=== PATIENT | female | born 1935 | race Asian ===

== ENCOUNTER 2016-07-26 09:50 | Inpatient (IN) | payer OTHER, MEDICAID ==
[~2016-07-26] VITALS: Ht 152.4 cm; Wt 61.0 kg
--- NOTE | 2016-07-26 10:02 | ERA ---
ER Documentation Chief Complaint Date/Time DATE: 07/26/16 TIME: 09:58 Chief Complaint ALOC DUE TO LO BS AT HOME. NO TRAUMA. BS ON ARRIVAL IS 142. A&OX3 ARRIVED HPI 81-year-old female with a history of diabetes mellitus type 2, hypertension, dyslipidemia, irregular heartbeat and vertigo presents to the ED via rescue ambulance for evaluation of altered mental status and hypoglycemia. Patient is Bangladeshi speaking and history is provided through her daughter who is at the bedside. Yesterday patient's blood sugar was consistently below 50 mg/dL throughout the day that she had no change in mental status. Daughter supplemented her diet with increased sugars and carbohydrates. This morning prior to arrival patient became confused and was not responding normally. 911 was activated. Her blood sugar was 21 mg/dL and was given D10 250 cc was given and now she is back to baseline. Repeat Accu-Chek was 142 mg/dL. Patient is otherwise asymptomatic. No headache, dizziness, visual changes, focal weakness or numbness. Denies chest pain or palpitations. No shortness of breath or cough. No abdominal pain, nausea, vomiting, diarrhea or constipation. No dysuria, polyuria or hematuria. No URI symptoms, body aches, odynophagia or rhinorrhea. No fevers, chills, anorexia or weight loss. ROS All systems reviewed and are negative except as per history of present illness. Medications Home Meds Reported Medications Alendronate Sodium* (Binosto*) 70 Mg Tablet.eff, 70 MG PO Q7D, TAB 07/26/16 Meclizine Hcl* (Meclizine Hcl*) 25 Mg Tablet, 25 MG PO Q8H Y for DIZZINESS, TAB 07/26/16 Propranolol Hcl* (Propranolol Hcl*) 10 Mg Tablet, 10 MG PO TID, TAB 07/26/16 Ramipril (Ramipril) 5 Mg Capsule, 5 MG PO DAILY, CAP 07/26/16 Atorvastatin* (Atorvastatin*) 40 Mg Tablet, 40 MG PO QHS, #30 TAB 07/26/16 Nateglinide* (Nateglinide*) 120 Mg Tablet, 120 MG PO BID, TAB 07/26/16 Metformin Hcl* (Metformin Hcl*) 500 Mg Tablet, 500 MG PO WITH BREAKFAST DINNE, # 30 TAB 07/26/16 Allergies Allergies: Coded Allergies: No Known Allergy (Unverified , 4/22/17) PMhx/Soc Reviewed in chart. As per HPI. Lives with family. History of Surgery: No Hx Neurological Disorder: Yes (Vertigo) Hx Respiratory Disorders: No Hx Cardiac Disorders: Yes (Hypertension, cardiac dysrhythmia) Hx Psychiatric Problems: No Hx Miscellaneous Medical Probl: Yes (Diabetes mellitus type 2) Hx Alcohol Use: No Hx Substance Use: No Hx Tobacco Use: No FmHx No cancer, stroke or diabetes Physical Exam Vitals Vital Signs Date Time Temp Pulse Resp B/P Pulse Ox O2 Delivery O2 Flow Rate FiO2 07/26/16 10:04 52 16 145/72 98 Room Air 07/26/16 09:53 98.2 52 20 134/67 98 Physical Exam Const: Alert, elderly in no acute distress. Head: Atraumatic Eyes: Pupils equal reactive to light, extraocular movements are intact. Normal Conjunctiva ENT: Normal External Ears, Nose and Mouth. Mucous membranes are moist Neck: Full range of motion. Nontender. No JVD.. Resp: Clear to auscultation bilaterally. Breath sounds are equal bilaterally without rales rhonchi or wheezes Cardio: Regular rate and rhythm, no murmurs Abd: Soft, non tender, non distended. Normal bowel sounds. No rebound or guarding. No masses or abnormal pulsations. Skin: No petechiae or rashes Back: No midline or flank tenderness Ext: No cyanosis, or edema Neur: Awake and alert. Cranial nerves II through XII are grossly intact. Motor and sensory equal bilaterally. No focal deficit observed. Psych: Normal Mood and Affect Result Diagram: 07/26/16 1030 07/26/16 1030 Results 24 hrs Laboratory Tests Test 07/26/16 09:56 07/26/16 10:30 07/26/16 11:06 07/26/16 11:31 Bedside Glucose 151mg/dL 72mg/dL 64mg/dL White Blood Count 14.210^3/ul Red Blood Count 3.8010^6/ul Hemoglobin 12.1g/dl Hematocrit 36.0% Mean Corpuscular Volume 94.7fl Mean Corpuscular Hemoglobin 31.8pg Mean Corpuscular Hemoglobin Concent 33.6g/dl Red Cell Distribution Width 13.2% Platelet Count 54685^3/UL Mean Platelet Volume 11.4fl Neutrophils % 75.2% Lymphocytes % 14.3% Monocytes % 9.1% Eosinophils % 0.0% Basophils % 0.3% Nucleated Red Blood Cells % 0.0/100WBC Neutrophils # 10.710^3/ul Lymphocytes # 2.010^3/ul Monocytes # 1.310^3/ul Eosinophils # 0.010^3/ul Basophils # 0.010^3/ul Nucleated Red Blood Cells # 0.010^3/ul Sodium Level 131mmol/L Potassium Level 4.4mmol/L Chloride Level 97mmol/L Carbon Dioxide Level 23mmol/L Anion Gap 15 Blood Urea Nitrogen 27mg/dl Creatinine 0.74mg/dl Glucose Level 88mg/dl Calcium Level 8.4mg/dl Total Bilirubin 1.0mg/dl Direct Bilirubin 0.00mg/dl Indirect Bilirubin 1.0mg/dl Aspartate Amino Transf (AST/SGOT) 55IU/L Alanine Aminotransferase (ALT/SGPT) 112IU/L Alkaline Phosphatase 58IU/L Total Protein 5.2g/dl Albumin 2.7g/dl Globulin 2.50g/dl Albumin/Globulin Ratio 1.08 Current Medications Medications (Trade) Dose Ordered Sig/Marissa Route PRN Reason Start Time Stop Time Status Last Admin Dose Admin Dextrose (D10w) 250 ml @ 75 mls/hr Q3H20M IV 07/26/16 12:00 07/26/16 12:09 Ondansetron HCl (Zofran Inj) 4 mg ER BRIDGE PRN IV NAUSEA AND/OR VOMITING 07/26/16 12:30 07/27/16 12:29 Acetaminophen (Tylenol Tab) 650 mg ER BRIDGE PRN PO MILD PAIN/FEVER 07/26/16 12:30 07/27/16 12:29 EKG: TIME: 10:22. Sinus bradycardia. Ventricular rate 48. Normal IL and QRS. T-wave inversions in leads V1 through V3. No acute ST segment elevation. No ectopy. EP Interpretation: Abnormal EKG. IMAGING: PROCEDURE: Chest x-ray CLINICAL INDICATION: Hypoglycemia TECHNIQUE: Chest single view COMPARISON: None FINDINGS: There is mild cardiomegaly and an sclerotic aortic calcification. There is mild prominence of the pulmonary vessels. No confluent pneumonia seen. Costophrenic angles sharp. Bony thorax is unremarkable. IMPRESSION: 1. Mild cardiomegaly and atherosclerotic aortic calcification. 2. Borderline prominence of the pulmonary vessels RPTAT: HH .Everett Boggs MD, MD Date Time Electronically viewed and signed by .Everett Boggs MD, on 07/26/2016 11:12 .W/ Procedures/MDM DOCUMENTS REVIEWED: ED nurse, EMS, no prior records available MEDICAL DECISION MAKIN-year-old female with a history of diabetes mellitus type 2, hypertension, dyslipidemia, irregular heartbeat and vertigo presents to the ED via rescue ambulance for evaluation of altered mental status and hypoglycemia. Patient presents with hyperglycemia secondary to oral hypoglycemics. Despite intravenous glucose supplementation and oral replacement blood sugar continues to drop from 151 mg/dL arrival to 72 mg/dL at 11:06 and 64 mg/dL at 11:30 requiring continuous D10 infusion. No focal neurologic deficit, headache or indication for neuroimaging. Abdominal exam is benign without tenderness, rebound, guarding or signs of an occult intra- abdominal process. Mild hyponatremia and prerenal azotemia. Bradycardia likely secondary to beta blockade for blood pressure stable. T-wave inversions in the anterior leads but no chest pain or other signs of acute coronary syndrome. No old EKG available for comparison. Patient to be admitted to telemetry for further evaluation and management. Counseled patient and family regarding diagnosis, diagnostic results and plan for admission. CALLS/CONSULTS: Time 11:45, Dr. Xiong PATIENT CARE TRANSITIONED: Time: 12:15, Dr. Xiong. Departure Diagnosis: Primary Impression: Altered level of consciousness Additional Impressions: Altered mental status Qualified Code: R41.82 - Altered mental status, unspecified altered mental status type Essential hypertension Hyperlipidemia Qualified Code: E78.5 - Hyperlipidemia, unspecified hyperlipidemia type Condition: Serious HANNAH YORK MD Jul 26, 2016 10:02
[2016-07-26 10:51] LABS: ADD SCAN DIFF NO
[2016-07-26 10:56] LABS: BASOPHILS % 0.3 % (0.0-2.0); HEMOGLOBIN 12.1 g/dl (12.0-16.0); LYMPHOCYTES % 14.3 % (15.0-51.0); MEAN CORPUSCULAR HEMOGLOBIN 31.8 pg (29.0-33.0); MEAN CORPUSCULAR HGB CONC 33.6 g/dl (32.0-37.0); MEAN CORPUSCULAR VOLUME 94.7 fl (82.0-101.0); MEAN PLATELET VOLUME 11.4 fl (7.4-10.4); MONOCYTE # 1.3 10^3/ul (0.3-0.9); MONOCYTES % 9.1 % (0.0-11.0); NEUTROPHIL # 10.7 10^3/ul (1.6-7.5); NEUTROPHILS % 75.2 % (39.0-77.0); PLATELET COUNT 184 10^3/UL (140-415); RED CELL DISTRIBUTION WIDTH 13.2 % (11.5-14.5); WHITE BLOOD COUNT 14.2 10^3/ul (4.8-10.8)
[2016-07-26 11:05] LABS: ALBUMIN 2.7 g/dl (3.3-4.9)
[2016-07-26 11:06] LABS: POTASSIUM 4.4 mmol/L (3.5-5.1)
[2016-07-26 11:08] LABS: ALBUMIN/GLOBULIN RATIO 1.08; CALCIUM 8.4 mg/dl (8.4-10.2); CREATININE 0.74 mg/dl (0.44-1.00); TOTAL PROTEIN 5.2 g/dl (6.1-8.1)
--- NOTE | 2016-07-26 11:12 | RADRPT ---
PROCEDURE: Chest x-ray CLINICAL INDICATION: Hypoglycemia TECHNIQUE: Chest single view COMPARISON: None FINDINGS: There is mild cardiomegaly and an sclerotic aortic calcification. There is mild prominence of the p ulmonary vessels. No confluent pneumonia seen. Costophrenic angles sharp. Bony thorax is unremark able. IMPRESSION: 1. Mild cardiomegaly and atherosclerotic aortic calcification. 2. Borderline prominence of the pulmonary vessels RPTAT: HH .Everett Boggs MD, MD Date Time Electronically viewed and signed by .Everett Boggs MD, MD on 07/26/2016 11:12 .W/
[2016-07-26] MEDS: DEXTROSE 10% 250 ML IV SCH ×2 (12:09→15:14)
[2016-07-26 12:25] LABS: ADD UMIC NO; URINE BILIRUBIN (Dip) NEGATIVE (NEGATIVE); URINE BLOOD (Dip) NEGATIVE (NEGATIVE); URINE COLOR LT. YELLOW (YELLOW); URINE GLUCOSE (Dip) NEGATIVE (NEGATIVE); URINE KETONES (Dip) NEGATIVE (NEGATIVE); URINE LEUKOCYTE ESTERASE (Dip) NEGATIVE (NEGATIVE); URINE NITRITE (Dip) NEGATIVE (NEGATIVE); URINE TOTAL PROTEIN (Dip) NEGATIVE (NEGATIVE); URINE UROBILINOGEN (Dip) 0.2 E.U./dL (0.1-1.0)
[2016-07-26] MEDS ORDERED: ACETAMINOPHEN 325 MG TAB PO PRN (12:30)
[2016-07-26] MEDS ORDERED: ONDANSETRON 4 MG INJ IV PRN ×2 (12:30→15:30)
[2016-07-26] MEDS ORDERED: ATOR40TA68 PO (12:34)
[2016-07-26] MEDS ORDERED: NATE120T PO (12:34)
[2016-07-26] MEDS ORDERED: METF500T4 PO (12:34)
[2016-07-26] MEDS ORDERED: RAMI5CAP46 PO (12:34)
[2016-07-26] MEDS ORDERED: MECL-77 PO (12:35)
[2016-07-26] MEDS ORDERED: PROP10TA6 PO (12:35)
[2016-07-26] MEDS ORDERED: ALEN70TA46 PO (12:36)
[2016-07-26] MEDS: DEXTROSE 5%-0.45% NACL 1,000 ML IV SCH ×2 (15:27→23:15)
[2016-07-26] MEDS ORDERED: GLUCOSE GEL 15 GRAM TUBE PO PRN ×2 (16:30)
[2016-07-26] MEDS ORDERED: GLUCAGON 1 MG INJ IM PRN (16:30)
[2016-07-26] MEDS ORDERED: DEXTROSE 50% 50 ML SYRINGE IV PRN ×2 (16:30)
[2016-07-26] MEDS ORDERED: GLUCOSE GEL 15 GRAM TUBE BUCCAL PRN (16:30)
--- NOTE | 2016-07-26 16:34 | RADRPT ---
PROCEDURE: Right upper quadrant abdominal ultrasound. CLINICAL INDICATION: Abdominal pain TECHNIQUE: Pozo scale and color doppler ultrasound images of the right upper quadrant. COMPARISON: None FINDINGS: Pancreas: Visualized portions appear of normal echogenicity, no focal lesions. Liver: Morphology: Normal in size and contour. Echogenicity: Normal. Focal lesions: None. Main portal vein: Patent with hepatopetal flow. Biliary System: Normal appearing gallbladder wall. No gallstones seen. No intrahepatic biliary dilatation. Common bile duct measures 3.3 mm in maximal dimension. Kidneys: Right 8.4 cm in length. Right renal cortical thickness is preserved. Normal echogenicity. No hydronephrosis. No renal calculi. No focal lesions. Small amount of free fluid seen in the upper abdomen. IMPRESSION: Normal gallbladder without gallstones. Small amount of free fluid seen in the upper abdomen of uncertain etiology. CT of the abdomen and p gene may be useful for further evaluation. RPTAT: AADD .Tommy Vaughn MD, MD Date Time Electronically viewed and signed by .Tommy Vauhgn MD, on 07/26/2016 16:33 .B/
[2016-07-26 17:20] VITALS: PULSE 59
[2016-07-26 18:23] VITALS: BP 136/72; RESP 19
[2016-07-26 20:00] VITALS: BP 137/65; RESP 18
[2016-07-26 20:17] VITALS: PULSE 50
[2016-07-26] MEDS ORDERED: ALENDRONATE SODIUM 70 MG PO SCH (20:30)
[2016-07-26] MEDS: DOCUSATE SODIUM 100 MG CAP PO SCH (20:43)
[2016-07-26] MEDS: ATORVASTATIN 40 MG TAB PO SCH (20:43)
[2016-07-26] MEDS: FAMOTIDINE 20 MG INJ IV SCH (20:43)
[2016-07-26] MEDS: PROPRANOLOL 10 MG TAB PO SCH (21:00)
[2016-07-26] MEDS: ACCU-CHEK XX SCH (21:55)
[2016-07-26 23:53] VITALS: BP 154/75; RESP 18
[2016-07-27] VITALS (13 sets, daily range): BP systolic 104–172; BP diastolic 54–89; PULSE 50–66; RESP 16–18
[2016-07-27] MEDS: ACCU-CHEK XX SCH ×6 (01:27→21:05)
[2016-07-27] MEDS: DEXTROSE 5%-0.45% NACL 1,000 ML IV SCH ×2 (06:56→14:08)
--- NOTE | 2016-07-27 06:58 | HP ---
DATE OF ADMISSION: 07/26/2016 PRESENTING COMPLAINT: Low blood glucose. HISTORY OF PRESENTING COMPLAINT: This is a very pleasant 81-year-old [place] female who was brou ght in by her daughter because of concerns for recurrent hypoglycemia. The patient is on 2 blood pr essure medicines currently as well as metformin and has been on these medications for years without issues; however, over the last day, because of lethargy and weakness, the patient's daughter has bee n checking her mother's blood sugar, and she noted that the sugars were ranging in the 30s and 40s a nd requiring glucose therapy repeatedly. She called EMS today when it happened again. When they go t there, the patient's sugar was said to be in the 40s. She was treated with glucose. It improved, but by the time they got back to the emergency room again, it had dropped again into the 70s. Init ially, the patient had denied any form of pain. Upon my review, the patient was complaining of some epigastric pain. She had 1 episode of diarrhea this morning and was just complaining of abdominal soreness and discomfort. There was no fever though. There was no nausea. There was no blood in he r stool. There were no black stools. There was no dysuria or hematuria. There was no chest pain, no passing out episodes. PAST MEDICAL HISTORY: 1. High blood pressure. 2. Diabetes. 3. Dyslipidemia. 4. Chronic dizziness. 5. Osteoporosis. PAST SURGICAL HISTORY: Denies. ALLERGIES: NO KNOWN DRUG ALLERGIES. SOCIAL HISTORY: Never smoked, drank alcohol, or used illicit drugs. FAMILY HISTORY: Noncontributory. There is also no history of gallstones. REVIEW OF SYSTEMS: A 12-point review of system was done. Pertinent findings are as noted in the HP I. PHYSICAL EXAMINATION: VITAL SIGNS: The patient was still somewhat bradycardic on my evaluation, the 50s, temperature 98.2 , respiratory rate 16, blood pressure 136/70, saturations 100% on room air. GENERAL: Elderly pleasant female, alert and oriented, in no distress. HEENT: Head is normocephalic. Pupils are equal and reactive. Mucous membranes are moist. Posteri or pharynx clear of erythema and exudate. NECK: Supple without adenopathy. CHEST: Clear to auscultation with good air entry on both sides. CARDIOVASCULAR: S1 and S2, no added sounds or murmurs. ABDOMEN: Epigastric fullness and tenderness noted, but there was no rebound, no guarding. Right up per quadrant was not overtly tender. The rest of the abdomen was overall soft without tenderness an d with normoactive bowel sounds. EXTREMITIES: No lower extremity edema. NEUROLOGIC: She had no focal deficits. The patient is said to be ambulatory with walker sometimes at baseline. SKIN: Devoid of rash or jaundice. PSYCHIATRIC: She was quite cooperative with exam. LABORATORY VALUES: She had a leukocytosis of 14,000 and mildly low hematocrit of 36, platelet count was normal, and there was no bandemia or neutrophilia. On her chemistry though, concerning was her LFTs that were elevated, AST at 55, ALT at 112. Her bilirubin levels were normal. Troponin was ne gative. Protein levels were slightly low. Serum sodium was on the low side at 131. BUN was slight ly elevated at 27, but more concerning was the lipase level of 1479. Urinalysis was not suggestive of a urinary tract infection. IMAGING: Chest x-ray showed mild cardiomegaly and atherosclerosis, and I ordered a gallbladder ultr asound that came back negative for gallstones and a small amount of free fluid seen in the upper abd omen of uncertain etiology. ASSESSMENT: This is an 81-year-old female who had presented with recurrent hypoglycemia, now manage d for the following 1. Acute recurrent hypoglycemia likely secondary to #2. 2. Acute pancreatitis, cause unclear. 3. Elevated transaminases which was thought to be secondary to probable gallstone pancreatitis but no presence of gallstones on ultrasound. 4. High blood pressure with good home control. 5. Diabetes mellitus with very good home control, type 2. 6. Mild hypernatremia. 7. Hyperproteinemia. PLAN: To admit the patient for further workup. She will be kept n.p.o. as per protocol, IV fluids, pain control. I am going to get a CT of the abdomen and pelvis to adequately define her abdominal organs and essentially see what we find. ____ may be secondary to hypertriglyceridemia or secondary cause or even medication related. I will review her medications with pharmacy and see if this is a probability. In the interim, though, we will control her pain with pain medication and give antiem etics and antibiotics as indicated. Further intervention will depend on her clinical course. For p rophylaxis, she will be on SCDs as well as PPI. For further information and clarification, please r eview the patient's chart and my orders. This plan of care has been discussed with the patient and her daughter. Questions have been answere d. Dictated By: GISELE ARREDONDO MD BA/NTS Conf#: [id number] DID#: [id number]
[2016-07-27] MEDS: DOCUSATE SODIUM 100 MG CAP PO SCH ×2 (08:12→20:41)
[2016-07-27] MEDS: BENAZEPRIL 20 MG TAB PO SCH (08:12)
[2016-07-27] MEDS: FAMOTIDINE 20 MG INJ IV SCH ×2 (08:12→21:04)
[2016-07-27] MEDS: PROPRANOLOL 10 MG TAB PO SCH ×3 (08:12→20:44)
[2016-07-27] MEDS ORDERED: NON-FORMULARY/PATIENT OWN MED (Ramipril 5 MG) PO SCH (09:00)
[2016-07-27] MEDS ORDERED: ALENDRONATE SODIUM 70 MG XX SCH (09:30)
--- NOTE | 2016-07-27 10:21 | RADRPT ---
PROCEDURE: CT abdomen and pelvis without contrast. CLINICAL INDICATION: Abdominal pain. Pancreatitis. TECHNIQUE: CT scan of the abdomen and pelvis without contrast was performed and is reconstructed a t 2.5 mm contiguous axial intervals from the dome of the diaphragm to the inferior pubic rami.. The patient was scanned without intravenous contrast. Sagittal and coronal reformatted images were obt ained from the axial source images. The calculated radiation dose measures 602 mGy centimeters. The CTDI measures 11 mGy. COMPARISON: None. FINDINGS: Lung bases are clear of any infiltrate or mass. There is a 6 mm ill-defined bilobed noncalcified no dular density on the posterior aspect of the lateral segment of the right middle lobe. There is a 4 mm indeterminate nodule in the medial basal segment of the left lower lobe. No effusion is present . The liver is of normal size, contour and attenuation with no solid mass or ductal dilatation. Sub ce ntimeter cysts are present in both lobes. No gallstones or common bile duct stones are visualized . No splenic or adrenal abnormalities present. no pancreatic mass or ductal dilatation is seen. T here is questionable minimal infiltration of the fat surrounding the head and neck of the pancreas. No discrete fluid collection is visualized. Large varices are seen extending from the splenic hilu m into the left renal vein. No other varices are identified. Kidneys are of normal size. No hydronephrosis, calculus or solid masses seen. 2 cm cortical cyst i s seen in the upper pole of the left kidney. Ureters are of normal course and caliber with no stone . No bladder mass or stone is present. Atrophic postmenopausal uterus is normal. No adnexal mass i s seen. There is no aneurysm. No adenopathy is present. No bowel mass or obstruction is present. The appendix is not confidently visualized, however, no inflamed appendix is noted.. No pneumoperitoneum is visualized. There is trace pelvic ascites. 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 IMPRESSION: No evidence of urolithiasis, obstructive uropathy, diverticulitis or appendicitis. Question mild infiltration peripancreatic fat without discrete pseudocyst. Findings may represent e vidence of pancreatitis. No gallstones or common bile duct stones seen. Hepatic cysts. 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 Rule out splenic vein occlusion. No other varices seen. Vascular calcifications. Scattered small benign appearing nodules in the lung bases. These most likely represent sequela of old inflammatory process. Follow-up CT could be performed in 4 months to insure stability. 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 Left renal cyst. .Dwight Garrett MD, Date Time Electronically viewed and signed by .Dwight Garrett MD, on 07/27/2016 10:20 .A/
[2016-07-27 11:29] LABS: ADD SCAN DIFF NO
[2016-07-27 11:31] LABS: ABNORMAL IP MESSAGE 1; BASOPHILS % 0.3 % (0.0-2.0); EOSINOPHILS # 0.2 10^3/ul (0.0-0.5); EOSINOPHILS % 1.4 % (0.0-7.0); HEMATOCRIT 37.3 % (37.0-47.0); HEMOGLOBIN 12.6 g/dl (12.0-16.0); LYMPHOCYTES # 3.2 10^3/ul (0.8-2.9); LYMPHOCYTES % 23.2 % (15.0-51.0); MEAN CORPUSCULAR HEMOGLOBIN 31.7 pg (29.0-33.0); MEAN CORPUSCULAR HGB CONC 33.8 g/dl (32.0-37.0); MEAN CORPUSCULAR VOLUME 93.7 fl (82.0-101.0); MEAN PLATELET VOLUME 11.8 fl (7.4-10.4); MONOCYTE # 2.2 10^3/ul (0.3-0.9); MONOCYTES % 16.1 % (0.0-11.0); NEUTROPHILS % 58.3 % (39.0-77.0); PLATELET COUNT 155 10^3/UL (140-415); RED BLOOD COUNT 3.98 10^6/ul (4.20-5.40); RED CELL DISTRIBUTION WIDTH 13.5 % (11.5-14.5); WHITE BLOOD COUNT 13.6 10^3/ul (4.8-10.8)
[2016-07-27 11:46] LABS: ALBUMIN 2.4 g/dl (3.3-4.9)
[2016-07-27 11:47] LABS: POTASSIUM 3.8 mmol/L (3.5-5.1)
[2016-07-27 11:49] LABS: ALBUMIN/GLOBULIN RATIO 1.04; BILIRUBIN,INDIRECT 1.7 mg/dl (0-1.1); BILIRUBIN,TOTAL 1.7 mg/dl (0.2-1.3); CALCIUM 7.7 mg/dl (8.4-10.2); CREATININE 0.77 mg/dl (0.44-1.00); MAGNESIUM 1.8 mg/dl (1.7-2.5); TOTAL PROTEIN 4.7 g/dl (6.1-8.1)
[2016-07-27 11:50] LABS: CHOL/HDL RATIO 1.2 RATIO
[2016-07-27 12:06] LABS: INR 1.18; PROTIME 15.1 Sec (12.2-14.2); PT RATIO 1.2
[2016-07-27 12:45] LABS: THYROID STIMULATING HORMONE 2.95 MIU/L (0.465-4.680)
--- NOTE | 2016-07-27 12:57 | PN ---
Date/Time of Note Date/Time of Note DATE: 07/27/16 TIME: 12:48 Assessment/Plan VTE Prophylaxis VTE Prophylaxis Intervention: SCD's Lines/Catheters IV Catheter Type (from Nrsg): Peripheral IV Assessment/Plan Assessment/Plan This is an 81-year-old female who had presented with recurrent hypoglycemia, now with an intresting constellation of symptoms (Pancreatitis / recurring hypoglycemia/ transaminitis with mild hyperbilirubinemia and splenic vv varices ) , managed as follows: 1. Acute recurrent hypoglycemia likely secondary to #2. 2. Acute pancreatitis, cause unclear. 3. Elevated transaminases and bilirubin which was thought to be secondary to probable gallstone pancreatitis but no presence of gallstones on ultrasound. 4. High blood pressure with good home control. 5. Diabetes mellitus with very good home control, type 2. A1c 6.6 6. Mild hypernatremia. 7. Hyperproteinemia. 8. 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 PLAN: * Lipase levels still quite elevated, Continue NPO / D5 IVF / PPI * CT abd / pelvis with IV contrast to eval pancreas for possible nodule secreting insulin and eval splenic vein * Consider Endocrinology consult * Check CK levels to r/o rhabdo and start lyrica for possible DM neuropathy causing back and extremity pain * Further interventions per clinical course and findings * Plan of care discussed with patient and daughter PROPHYLAXIS: SCDS / PPI Subjective 24 Hr Interval Summary Free Text/Dictation * abd pain is better * Had another episode of hypoglycemia late yesterday * remains NPO except meds * c/o diffuse back pain Exam/Review of Systems Vital Signs Vitals Vital Signs Date Time Temp Pulse Resp B/P Pulse Ox O2 Delivery O2 Flow Rate FiO2 07/27/16 12:28 52 07/27/16 10:58 97.7 18 143/60 100 07/26/16 15:46 Room Air Intake and Output 07/26/16 07/26/16 07/27/16 15:00 23:00 07:00 Intake Total 500 ml 1100 ml Balance 500 ml 1100 ml Exam Constitutional: alert, frail, oriented, No distress Psych: nl mood/affect Head: atraumatic, normocephalic Eyes: PERRL, No icteric ENMT: mucosa pink and moist Neck: supple Respiratory: clear to auscultation, normal air movement Cardiovascular: regular rate and rhythm, No murmurs/extra sounds Gastrointestinal: bowel sounds, soft, tender (epigastrium less tender) Extremities: edema (abbey, non pitting ) Neurological: nl mental status, No focal weakness Skin: No rash or lesions Results Result Diagram: 07/27/16 1046 07/27/16 1046 Results 24 hrs Laboratory Tests Test 07/26/16 13:21 07/26/16 14:42 07/26/16 15:30 07/26/16 21:52 Bedside Glucose 101 96 90 44 *L Test 07/26/16 22:20 07/26/16 22:40 07/26/16 23:13 07/27/16 01:00 Bedside Glucose 205 148 114 93 Test 07/27/16 05:33 07/27/16 08:18 07/27/16 10:46 Bedside Glucose 117 113 White Blood Count 13.6 H Red Blood Count 3.98 L Hemoglobin 12.6 Hematocrit 37.3 Mean Corpuscular Volume 93.7 Mean Corpuscular Hemoglobin 31.7 Mean Corpuscular Hemoglobin Concent 33.8 Red Cell Distribution Width 13.5 Platelet Count 155 Mean Platelet Volume 11.8 H Neutrophils % 58.3 Lymphocytes % 23.2 Monocytes % 16.1 H Eosinophils % 1.4 Basophils % 0.3 Nucleated Red Blood Cells % 0.0 Neutrophils # 8.0 H Lymphocytes # 3.2 H Monocytes # 2.2 H Eosinophils # 0.2 Basophils # 0.0 Nucleated Red Blood Cells # 0.0 Prothrombin Time 15.1 H Prothrombin Time Ratio 1.2 INR International Normalized Ratio 1.18 Activated Partial Thromboplast Time Pending Sodium Level 134 L Potassium Level 3.8 Chloride Level 103 Carbon Dioxide Level 27 Anion Gap 8 Blood Urea Nitrogen 20 Creatinine 0.77 Glucose Level 97 Hemoglobin A1c 6.6 H Calcium Level 7.7 L Magnesium Level 1.8 Total Bilirubin 1.7 H Direct Bilirubin 0.00 Indirect Bilirubin 1.7 H Aspartate Amino Transf (AST/SGOT) 45 Alanine Aminotransferase (ALT/SGPT) 92 H Alkaline Phosphatase 42 Creatine Kinase < 20 L Total Protein 4.7 L Albumin 2.4 L Globulin 2.30 Albumin/Globulin Ratio 1.04 Triglycerides Level 57 Cholesterol Level 57 L LDL Cholesterol, Calculated 0 HDL Cholesterol 47 Cholesterol/HDL Ratio 1.2 Amylase Level 290 H Lipase 2438 H Thyroid Stimulating Hormone (TSH) 2.950 Medications Medications Current Medications Dextrose/Sodium Chloride (D5-1/2ns) 1,000 ml @ 125 mls/hr Q8H IV Last administered on 07/27/16 06:56; Admin Dose 125 MLS/HR; Start 07/26/16 at 15:30 Famotidine (Pepcid Iv) 20 mg BID IV Last administered on 07/27/16 08:12; Admin Dose 20 MG; Start 07/26/16 at 21:00 Morphine Sulfate (morphine) 2 mg Q4H PRN IV pain; Start 07/26/16 at 15:30 Ondansetron HCl (Zofran Inj) 4 mg Q6H PRN IV NAUSEA AND/OR VOMITING; Start at 15:30 Docusate Sodium (Colace) 100 mg BID PO Last administered on 07/27/16 08:12; Admin Dose 100 MG; Start 07/26/16 at 21:00 Miscellaneous Information 1 ea NOTE XX ; Start 07/26/16 at 16:30 Glucose (Glutose) 15 gm Q15M PRN PO DECREASED GLUCOSE; Start 07/26/16 at 16:30 Glucose (Glutose) 22.5 gm Q15M PRN PO DECREASED GLUCOSE; Start 07/26/16 at 16: 30 Dextrose (D50w Syringe) 25 ml Q15M PRN IV DECREASED GLUCOSE; Start 07/26/16 at 16:30 Dextrose (D50w Syringe) 50 ml Q15M PRN IV DECREASED GLUCOSE Last administered on 07/26/16 22:02; Admin Dose 50 ML; Start 07/26/16 at 16:30 Glucagon (Glucagen) 1 mg Q15M PRN IM DECREASED GLUCOSE; Start 07/26/16 at 16:30 Glucose (Glutose) 15 gm Q15M PRN BUCCAL DECREASED GLUCOSE; Start 07/26/16 at 16 :30 Diagnostic Test (Pha) (Accu-Chek) 1 ea Q4 XX Last administered on 07/27/16 08: 19; Admin Dose 1 EA; Start 07/26/16 at 21:00 Atorvastatin Calcium (Lipitor) 40 mg QHS PO Last administered on 07/26/16 20: 43; Admin Dose 40 MG; Start 07/26/16 at 21:00 Meclizine HCl (Antivert) 25 mg Q8H PRN PO DIZZINESS; Start 07/26/16 at 20:30 Propranolol HCl (Inderal) 10 mg TID PO Last administered on 07/27/16 08:12; Admin Dose 10 MG; Start 07/26/16 at 21:00 Miscellaneous Information 70 mg Q7D PO ; Start 07/26/16 at 20:30; Status UNV Benazepril HCl (Lotensin) 20 mg DAILY PO Last administered on 07/27/16 08:12; Admin Dose 20 MG; Start 07/27/16 at 09:00 Miscellaneous Information (*Order Clarification Bulletin) (Alendronate Sodium* ( Binosto*) 70 ... Q8H XX ; Start 07/27/16 at 09:30 Pregabalin (Lyrica) 75 mg BID PO ; Start 07/27/16 at 12:00 Procedures Procedures PROCEDURE: Right upper quadrant abdominal ultrasound. CLINICAL INDICATION: Abdominal pain TECHNIQUE: Pozo scale and color doppler ultrasound images of the right upper quadrant. COMPARISON: None FINDINGS: Pancreas: Visualized portions appear of normal echogenicity, no focal lesions. Liver: Morphology: Normal in size and contour. Echogenicity: Normal. Focal lesions: None. Main portal vein: Patent with hepatopetal flow. Biliary System: Normal appearing gallbladder wall. No gallstones seen. No intrahepatic biliary dilatation. Common bile duct measures 3.3 mm in maximal dimension. Kidneys: Right 8.4 cm in length. Right renal cortical thickness is preserved. Normal echogenicity. No hydronephrosis. No renal calculi. No focal lesions. Small amount of free fluid seen in the upper abdomen. IMPRESSION: Normal gallbladder without gallstones. Small amount of free fluid seen in the upper abdomen of uncertain etiology. CT of the abdomen and pelvis may be useful for further evaluation. RPTAT: AADD .Tommy Vaughn MD, Date Time Electronically viewed and signed by .Tommy Vaughn MD, on 07/26/2016 16:33 .B/ CC: GIESLE ARREDONDO PROCEDURE: CT abdomen and pelvis without contrast. CLINICAL INDICATION: Abdominal pain. Pancreatitis. TECHNIQUE: CT scan of the abdomen and pelvis without contrast was performed and is reconstructed at 2.5 mm contiguous axial intervals from the dome of the diaphragm to the inferior pubic rami.. The patient was scanned without intravenous contrast. Sagittal and coronal reformatted images were obtained from the axial source images. The calculated radiation dose measures 602 mGy centimeters. The CTDI measures 11 mGy. COMPARISON: None. FINDINGS: Lung bases are clear of any infiltrate or mass. There is a 6 mm ill-defined bilobed noncalcified nodular density on the posterior aspect of the lateral segment of the right middle lobe. There is a 4 mm indeterminate nodule in the medial basal segment of the left lower lobe. No effusion is present. The liver is of normal size, contour and attenuation with no solid mass or ductal dilatation. Sub centimeter cysts are present in both lobes. No gallstones or common bile duct stones are visualized. No splenic or adrenal abnormalities present. no pancreatic mass or ductal dilatation is seen. There is questionable minimal infiltration of the fat surrounding the head and neck of the pancreas. No discrete fluid collection is visualized. Large varices are seen extending from the splenic hilum into the left renal vein. No other varices are identified. Kidneys are of normal size. No hydronephrosis, calculus or solid masses seen. 2 cm cortical cyst is seen in the upper pole of the left kidney. Ureters are of normal course and caliber with no stone. No bladder mass or stone is present. Atrophic postmenopausal uterus is normal. No adnexal mass is seen. There is no aneurysm. No adenopathy is present. No bowel mass or obstruction is present. The appendix is not confidently visualized, however, no inflamed appendix is noted.. No pneumoperitoneum is visualized. There is trace pelvic ascites. 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 IMPRESSION: No evidence of urolithiasis, obstructive uropathy, diverticulitis or appendicitis. Question mild infiltration peripancreatic fat without discrete pseudocyst. Findings may represent evidence of pancreatitis. No gallstones or common bile duct stones seen. Hepatic cysts. 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 Rule out splenic vein occlusion. No other varices seen. Vascular calcifications. Scattered small benign appearing nodules in the lung bases. These most likely represent sequela of old inflammatory process. Follow-up CT could be performed in 4 months to insure stability. 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 Left renal cyst. .Dwight Garrett MD, MD Date Time Electronically viewed and signed by .Dwight Garrett MD, on 07/27/2016 10: 20 .A/ CC: GISELE ARREDONDO BOLATITO M. Jul 27, 2016 12:57
[2016-07-27 12:59] LABS: PARTIAL THROMBOPLASTIN TIME 29.3 Sec (25.0-35.0)
[2016-07-27] MEDS ORDERED: ALENDRONATE 70 MG TAB PO SCH (14:00)
[2016-07-27] MEDS: PREGABALIN 75 MG CAP PO SCH ×2 (14:01→21:04)
[2016-07-27] MEDS ORDERED: BARIUM SULF 2% 450 ML BTL (BERRY SMOOTHIE) PO ONE (15:00)
[2016-07-27] MEDS ORDERED: IOHEXOL 300MG/ML 150 ML BTL ONE (15:46)
[2016-07-27] MEDS ORDERED: SOD CHLORIDE 0.9% 100 ML ONE (15:46)
[2016-07-27] MEDS ORDERED: VITAMIN A & D 5 GM OINT PACKET TOP ONE (15:46)
--- NOTE | 2016-07-27 16:56 | RADRPT ---
PROCEDURE: CT abdomen and pelvis with and without contrast. CLINICAL INDICATION: Splenic varices. TECHNIQUE: Following oral contrast, spiral CT scan of the abdomen and pelvis was performed and is reconstructed at 2.5 mm contiguous axial intervals from the dome of the diaphragm to the inferior pu bic rami.. The patient was then injected with 100 cc of Omnipaque-300 and postcontrast imaging was obtained in both the arterial and portal venous phase of the injection. Sagittal and coronal reform atted images were obtained from the axial source images. The calculated radiation dose measures 1102 mGy centimeters. The CTDI measures 11 mGy. COMPARISON: Precontrast CT abdomen and pelvis earlier same date FINDINGS: The lung bases are clear of any infiltrate . Again noted is a 6 mm bilobed nodule in the right lowe r lobe and a 3 mm nodule in the left lower lobe.. No effusion is seen. The liver is of normal size, contour and attenuation. There are multiple sub centimeter hepatic cys ts. In addition, there is a 9 mm hypodense nodule in the central right lobe of the liver and a 5 mm hypodense nodule in the the lateral segment of the left lobe of the liver both of which enhances co mpletely on the post contrast delayed images and are compatible with small hemangiomas. No ductal d ilatation is seen. No gallstones are visualized. The portal and splenic veins are open as is the superior mesenteric and inferior mesenteric vein. A gain noted are large varices extending from the splenic bed inferiorly with direct communication wit h the left renal vein. The spleen is not enlarged. There are to sub centimeter splenic cysts. No solid pancreatic mass or ductal dilatation is seen. There are scattered less than 4 mm fluid densit y cystic lesions in the pancreas. Kidneys are of normal size. No hydronephrosis, calculus or solid masses seen. There is a 15 mm cor tical cyst of the left kidney with scattered smaller bilateral renal cysts. Ureters are of normal c ourse and caliber with no stone. No bladder mass or stone is present. Postmenopausal uterus appears normal. There is no aneurysm. No adenopathy is present. No bowel mass or obstruction is present. The appendix is normal. No phlegmon or pneumoperitoneum is visualized. There is trace ascites. There is dextroscoliosis of the lower lumbar spine with degenerative disk disease. IMPRESSION: Large varices in the splenic bed which drain into the left renal vein despite apparent patency of th e portal and splenic veins. Question portal hypertension, however, no other varices are seen and th ere is no splenomegaly or clinically significant ascites. Multiple hepatic cysts with small hemangiomas. Small splenic cysts. Tiny cystic lesions of pancreas most likely representing either pseudocysts or benign cystic masses. Follow-up thin-section CT could be performed in 4 months to insure stability. Indeterminate nodular densities lung bases. 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 .Dwight Garrett MD, MD Date Time Electronically viewed and signed by .Dwight Garrett MD, MD on 07/27/2016 16:56 .A/
[2016-07-27] MEDS: ATORVASTATIN 40 MG TAB PO SCH (21:04)
[2016-07-28] VITALS (11 sets, daily range): BP systolic 118–147; BP diastolic 64–69; PULSE 50–58; RESP 16–20
[2016-07-28] MEDS: ACCU-CHEK XX SCH ×6 (00:34→21:14)
[2016-07-28] MEDS: DEXTROSE 5%-0.45% NACL 1,000 ML IV SCH ×4 (00:40→21:15)
[2016-07-28] MEDS: DOCUSATE SODIUM 100 MG CAP PO SCH ×2 (09:00→21:00)
[2016-07-28] MEDS: PROPRANOLOL 10 MG TAB PO SCH ×3 (09:00→21:00)
[2016-07-28 09:40] LABS: ADD SCAN DIFF NO
[2016-07-28 09:42] LABS: ABNORMAL IP MESSAGE 1; BASOPHIL # 0.1 10^3/ul (0.0-0.1); BASOPHILS % 0.5 % (0.0-2.0); EOSINOPHILS # 0.2 10^3/ul (0.0-0.5); EOSINOPHILS % 2.2 % (0.0-7.0); HEMATOCRIT 35.7 % (37.0-47.0); LYMPHOCYTES # 1.9 10^3/ul (0.8-2.9); LYMPHOCYTES % 20.2 % (15.0-51.0); MEAN CORPUSCULAR HEMOGLOBIN 32.1 pg (29.0-33.0); MEAN CORPUSCULAR HGB CONC 33.6 g/dl (32.0-37.0); MEAN CORPUSCULAR VOLUME 95.5 fl (82.0-101.0); MEAN PLATELET VOLUME 11.1 fl (7.4-10.4); MONOCYTE # 1.5 10^3/ul (0.3-0.9); MONOCYTES % 16.7 % (0.0-11.0); NEUTROPHIL # 5.5 10^3/ul (1.6-7.5); NEUTROPHILS % 59.6 % (39.0-77.0); PLATELET COUNT 125 10^3/UL (140-415); RED BLOOD COUNT 3.74 10^6/ul (4.20-5.40); RED CELL DISTRIBUTION WIDTH 13.6 % (11.5-14.5); WHITE BLOOD COUNT 9.2 10^3/ul (4.8-10.8)
[2016-07-28 09:56] LABS: ALBUMIN 2.2 g/dl (3.3-4.9)
[2016-07-28 09:57] LABS: POTASSIUM 3.7 mmol/L (3.5-5.1)
[2016-07-28 09:59] LABS: BILIRUBIN,INDIRECT 2.1 mg/dl (0-1.1); BILIRUBIN,TOTAL 2.1 mg/dl (0.2-1.3); CALCIUM 7.4 mg/dl (8.4-10.2); CREATININE 0.73 mg/dl (0.44-1.00); TOTAL PROTEIN 4.4 g/dl (6.1-8.1)
--- NOTE | 2016-07-28 10:25 | PN ---
Date/Time of Note Date/Time of Note DATE: 07/28/16 TIME: 10:19 Assessment/Plan VTE Prophylaxis VTE Prophylaxis Intervention: SCD's Lines/Catheters IV Catheter Type (from Nrs): Peripheral IV Assessment/Plan Chief Complaint/Hosp Course Assessment and plan: 1. Acute recurrent hypoglycemia likely secondary to #2. 2. Acute pancreatitis, cause unclear. With no evidence of cholecystitis or cholelithiasis on abdominal ultrasound 3. Elevated transaminases and bilirubin which was thought to be secondary to probable gallstone pancreatitis but no presence of gallstones on ultrasound. 4. High blood pressure with good home control. 5. Diabetes mellitus with very good home control, type 2. A1c 6.6 6. Mild hypernatremia. 7. Hyperproteinemia. 8. 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 Exam/Review of Systems Vital Signs Vitals Vital Signs Date Time Temp Pulse Resp B/P Pulse Ox O2 Delivery O2 Flow Rate FiO2 07/28/16 08:00 52 07/28/16 07:14 97.8 16 119/69 99 07/27/16 21:45 Room Air Intake and Output 07/27/16 07/27/16 07/28/16 15:00 23:00 07:00 Intake Total 1250 ml 850 ml Balance 1250 ml 850 ml Exam General: The patient is well-developed, Not in acute distress. HEENT: Atraumatic, normocephalic. The pupils are equal and round . Neck: Supple with full range of motion. Chest: Normal expansion of the thorax during inspiration Lungs: Clear to auscultation bilaterally Heart: Normal S1-S2, Regular rhythm and rate. Abdomen: Soft , mid epigastric tenderness with deep palpation, nondistended , bowel sounds are present. Extremities: Normal to inspection, no edema no cyanosis Neurologic: Normal mental status,The patient is awake, alert and oriented . Results Result Diagram: 07/28/1624 07/28/16 0927 Results 24 hrs Laboratory Tests Test 07/27/16 10:46 07/27/16 13:06 07/27/16 17:13 07/27/16 21:09 White Blood Count 13.6 H Red Blood Count 3.98 L Hemoglobin 12.6 Hematocrit 37.3 Mean Corpuscular Volume 93.7 Mean Corpuscular Hemoglobin 31.7 Mean Corpuscular Hemoglobin Concent 33.8 Red Cell Distribution Width 13.5 Platelet Count 155 Mean Platelet Volume 11.8 H Neutrophils % 58.3 Lymphocytes % 23.2 Monocytes % 16.1 H Eosinophils % 1.4 Basophils % 0.3 Nucleated Red Blood Cells % 0.0 Neutrophils # 8.0 H Lymphocytes # 3.2 H Monocytes # 2.2 H Eosinophils # 0.2 Basophils # 0.0 Nucleated Red Blood Cells # 0.0 Prothrombin Time 15.1 H Prothrombin Time Ratio 1.2 INR International Normalized Ratio 1.18 Activated Partial Thromboplast Time 29.3 Sodium Level 134 L Potassium Level 3.8 Chloride Level 103 Carbon Dioxide Level 27 Anion Gap 8 Blood Urea Nitrogen 20 Creatinine 0.77 Glucose Level 97 Hemoglobin A1c 6.6 H Calcium Level 7.7 L Magnesium Level 1.8 Total Bilirubin 1.7 H Direct Bilirubin 0.00 Indirect Bilirubin 1.7 H Aspartate Amino Transf (AST/SGOT) 45 Alanine Aminotransferase (ALT/SGPT) 92 H Alkaline Phosphatase 42 Creatine Kinase < 20 L Total Protein 4.7 L Albumin 2.4 L Globulin 2.30 Albumin/Globulin Ratio 1.04 Triglycerides Level 57 Cholesterol Level 57 L LDL Cholesterol, Calculated 0 HDL Cholesterol 47 Cholesterol/HDL Ratio 1.2 Amylase Level 290 H Lipase 2438 H CA 19-9 Antigen 3.1 Thyroid Stimulating Hormone (TSH) 2.950 Bedside Glucose 101 80 131 Test 07/28/16 00:39 07/28/16 05:23 07/28/16 09:24 07/28/16 09:27 Bedside Glucose 191 206 175 White Blood Count 9.2 # Red Blood Count 3.74 L Hemoglobin 12.0 Hematocrit 35.7 L Mean Corpuscular Volume 95.5 Mean Corpuscular Hemoglobin 32.1 Mean Corpuscular Hemoglobin Concent 33.6 Red Cell Distribution Width 13.6 Platelet Count 125 L Mean Platelet Volume 11.1 H Neutrophils % 59.6 Lymphocytes % 20.2 Monocytes % 16.7 H Eosinophils % 2.2 Basophils % 0.5 Nucleated Red Blood Cells % 0.0 Neutrophils # 5.5 Lymphocytes # 1.9 Monocytes # 1.5 H Eosinophils # 0.2 Basophils # 0.1 Nucleated Red Blood Cells # 0.0 Sodium Level 136 Potassium Level 3.7 Chloride Level 102 Carbon Dioxide Level 28 Anion Gap 10 Blood Urea Nitrogen 14 Creatinine 0.73 Glucose Level 182 Calcium Level 7.4 L Total Bilirubin 2.1 H Direct Bilirubin 0.00 Indirect Bilirubin 2.1 H Aspartate Amino Transf (AST/SGOT) 36 Alanine Aminotransferase (ALT/SGPT) 80 H Alkaline Phosphatase 39 L Total Protein 4.4 L Albumin 2.2 L Globulin 2.20 Albumin/Globulin Ratio 1.00 Amylase Level 210 H Lipase 1575 H Medications Medications Current Medications Dextrose/Sodium Chloride (D5-1/2ns) 1,000 ml @ 100 mls/hr Q10H IV Last administered on 07/28/16 09:29; Admin Dose 100 MLS/HR; Start 07/26/16 at 15:30 Famotidine (Pepcid Iv) 20 mg BID IV Last administered on 07/27/16 21:04; Admin Dose 20 MG; Start 07/26/16 at 21:00 Morphine Sulfate (morphine) 2 mg Q4H PRN IV pain; Start 07/26/16 at 15:30 Ondansetron HCl (Zofran Inj) 4 mg Q6H PRN IV NAUSEA AND/OR VOMITING; Start at 15:30 Docusate Sodium (Colace) 100 mg BID PO Last administered on 07/27/16 08:12; Admin Dose 100 MG; Start 07/26/16 at 21:00 Miscellaneous Information 1 ea NOTE XX ; Start 07/26/16 at 16:30 Glucose (Glutose) 15 gm Q15M PRN PO DECREASED GLUCOSE; Start 07/26/16 at 16:30 Glucose (Glutose) 22.5 gm Q15M PRN PO DECREASED GLUCOSE; Start 07/26/16 at 16: 30 Dextrose (D50w Syringe) 25 ml Q15M PRN IV DECREASED GLUCOSE; Start 07/26/16 at 16:30 Dextrose (D50w Syringe) 50 ml Q15M PRN IV DECREASED GLUCOSE Last administered on 07/26/16 22:02; Admin Dose 50 ML; Start 07/26/16 at 16:30 Glucagon (Glucagen) 1 mg Q15M PRN IM DECREASED GLUCOSE; Start 07/26/16 at 16:30 Glucose (Glutose) 15 gm Q15M PRN BUCCAL DECREASED GLUCOSE; Start 07/26/16 at 16 :30 Diagnostic Test (Pha) (Accu-Chek) 1 ea Q4 XX Last administered on 07/28/16 05: 18; Admin Dose 1 EA; Start 07/26/16 at 21:00 Atorvastatin Calcium (Lipitor) 40 mg QHS PO Last administered on 07/27/16 21: 04; Admin Dose 40 MG; Start 07/26/16 at 21:00 Meclizine HCl (Antivert) 25 mg Q8H PRN PO DIZZINESS; Start 07/26/16 at 20:30 Propranolol HCl (Inderal) 10 mg TID PO Last administered on 07/27/16 13:07; Admin Dose 10 MG; Start 07/26/16 at 21:00 Benazepril HCl (Lotensin) 20 mg DAILY PO Last administered on 07/27/16 08:12; Admin Dose 20 MG; Start 07/27/16 at 09:00 Pregabalin (Lyrica) 75 mg BID PO Last administered on 07/27/16 21:04; Admin Dose 75 MG; Start 07/27/16 at 12:00 Alendronate Sodium (Fosamax) 70 mg Velasquez PO Last administered on 07/27/16 14:01; Admin Dose 70 MG; Start 07/27/16 at 14:00 Clonidine (Catapres) 0.1 mg Q8 PRN PO ELEVATED BLOOD PRESSURE Last administered on 07/27/16 21:04; Admin Dose 0.1 MG; Start 07/27/16 at 20:30 JOSE FELDMAN MD Jul 28, 2016 10:25
[2016-07-28] MEDS: PREGABALIN 75 MG CAP PO SCH ×2 (10:50→21:14)
[2016-07-28] MEDS: FAMOTIDINE 20 MG INJ IV SCH ×2 (10:50→21:09)
[2016-07-28] MEDS: BENAZEPRIL 20 MG TAB PO SCH (11:01)
[2016-07-28] MEDS: ATORVASTATIN 40 MG TAB PO SCH (21:09)
--- NOTE | 2016-07-28 23:32 | CONS ---
DATE OF ADMISSION: 07/26/2016 DATE OF CONSULTATION: 07/28/2016 TYPE OF CONSULTATION: Surgical. REFERRING PHYSICIAN: Jose Feldman MD CHIEF COMPLAINT: 1. Abdominal pain. 2. Pancreatitis. HISTORY OF PRESENT ILLNESS: Gracie José is an 81-year-old [place]ian female with multiple comorbidities who was initially brought by her daughter for recurrent hypoglycemia, required glucose therapy. She initially had some epigastric pain, which has resolved. She had an episode of diarrhea. She denie s any fevers or chills. No nausea, vomiting. No chest pain, shortness of breath. No blood per ji th or rectum. No cough. No seizure. No visual or neurologic changes. No dysuria or hematuria. S he is having bowel function. No chest pain, no shortness of breath. Her workup identified leukocytosis of 14,000 and abnormal amylase and lipase. The patient had abdom inal ultrasound, which is negative for gallstones; however, has some free fluid in the upper abdomen . She also had a CT scan of the abdomen, which identified large varices in the splenic bed, which r an into the left renal vein despite apparent patency of the portal and splenic veins. There is ques tion of portal hypertension; however, there were no other varices or splenomegaly identified. There are multiple hepatic cysts with small hemangiomas and small splenic cysts. She has a tiny cystic l esion of the pancreas, most likely representing pseudocysts or benign cystic masses. She has scatte red benign nodules in the lung bases, most likely old inflammatory process. She has some mild infil tration of the peripancreatic fat. No gallstones or common bile duct stones are seen. Surgical con sult was obtained for further evaluation and treatment. PAST MEDICAL HISTORY: 1. Hyperbilirubinemia. 2. Abnormal LFTs. 3. Hypoalbuminemia. 4. Pancreatitis. 5. Leukocytosis. 6. Hepatic cysts. 7. Hemangiomas. 8. Small splenic cysts. 9. Tiny cystic lesions of the pancreas, most likely pseudocysts or benign cystic masses. 10. Nodular densities of the lung bases. 11. Degenerative disk disease. 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 13. Vertigo. 14. Cardiac dysrhythmia. 15. Hypercholesterolemia. 16. Hypertension. 17. Bloating history. 18. Diabetes mellitus type 2. 19. Back pain. 20. Cataract history. 21. Pneumonia history. 22. She has had 9 abortions and 5 living children. 23. Osteoporosis. PAST SURGICAL HISTORY: 1. Cataract surgery in 2005. 2. Nine abortions. ALLERGIES: NONE. SOCIAL HISTORY: No alcohol, drugs, or tobacco. FAMILY HISTORY: Noncontributory. REVIEW OF SYSTEMS: A 12-point review of systems negative unless addressed in HPI. PHYSICAL EXAMINATION: VITAL SIGNS: Temperature is 97.5, pulse 54, blood pressure 134/65, saturating 100%. GENERAL: No acute distress, comfortable, pleasant. HEENT: Pupils equal, reactive. No scleral icterus. Mucous membranes are moist. NECK: Supple. No JVD. PULMONARY: Normal respiratory effort. No wheezing. HEART: S1, S2 present. ABDOMEN: Soft, minimally tender in the epigastric region. No rebound, no guarding, not rigid. Neg ative Renee's. EXTREMITIES: No edema. VASCULAR: Cap refill less than 2 seconds. NEUROLOGIC: Alert, oriented, moves all 4 extremities grossly. LABORATORY AND RADIOGRAPHIC: As per chart and HPI. ASSESSMENT AND PLAN: Gracie José is an 81-year-old female with multiple comorbidities. 1. Abdominal pain with elevated amylase, lipase, suggestive of pancreatitis; however, etiology is u nknown. There is no evidence of gallstones. She does not recall being bitten by a spider; however, they did own a farm many years ago. Her triglycerides are within normal. CA 19-9 is within normal at 3.1. Consider MRCP. Encourage GI consultation. Rule out medications as a source. 2. Leukocytosis, improved. Continue to monitor. 3. Hypoalbuminemia. Will benefit from nutritional optimization. 4. Hyperbilirubinemia and abnormal LFTs may be secondary to abdominal pain with elevated amylase, l ipase, suggestive of pancreatitis; however, etiology is unknown. Treatment as above. 5. Diabetes. Continue nutrition and medication control. 6. Hypertension. Continue nutrition and medication control. 7. Cardiac dysrhythmia. Continue rate control and electrolyte optimization. 8. Dyslipidemia. Continue nutrition and medication control. Thank you very much for consulting me in this patient's care. Dictated By: LÁZARO RAMIREZ/MARCY Conf#: [id number] DID#: [id number] CC: GISELE ARREDONDO MD; JOSE FELDMAN MD;*[facility]*
[2016-07-29] VITALS (12 sets, daily range): BP systolic 125–157; BP diastolic 60–86; PULSE 50–60; RESP 16–20
[2016-07-29] MEDS: ACCU-CHEK XX SCH ×6 (01:39→20:05)
[2016-07-29 07:59] LABS: ALBUMIN 2.2 g/dl (3.3-4.9); BILIRUBIN,INDIRECT 1.9 mg/dl (0-1.1); BILIRUBIN,TOTAL 1.9 mg/dl (0.2-1.3); CALCIUM 7.5 mg/dl (8.4-10.2); CREATININE 0.72 mg/dl (0.44-1.00); MAGNESIUM 1.8 mg/dl (1.7-2.5); POTASSIUM 4.2 mmol/L (3.5-5.1); TOTAL PROTEIN 4.4 g/dl (6.1-8.1)
[2016-07-29] MEDS: DOCUSATE SODIUM 100 MG CAP PO SCH ×2 (09:00→20:00)
[2016-07-29] MEDS: PROPRANOLOL 10 MG TAB PO SCH ×3 (09:00→21:00)
[2016-07-29] MEDS: PREGABALIN 75 MG CAP PO SCH ×2 (09:56→20:00)
[2016-07-29] MEDS: DEXTROSE 5%-0.45% NACL 1,000 ML IV SCH ×2 (09:56→20:00)
[2016-07-29] MEDS: FAMOTIDINE 20 MG INJ IV SCH ×2 (09:57→19:59)
[2016-07-29] MEDS: BENAZEPRIL 20 MG TAB PO SCH (09:58)
[2016-07-29 10:36] LABS: ADD SCAN DIFF NO
[2016-07-29 11:09] LABS: BASOPHILS % 0.4 % (0.0-2.0); EOSINOPHILS # 0.2 10^3/ul (0.0-0.5); EOSINOPHILS % 2.9 % (0.0-7.0); HEMATOCRIT 35.2 % (37.0-47.0); HEMOGLOBIN 11.6 g/dl (12.0-16.0); LYMPHOCYTES # 1.5 10^3/ul (0.8-2.9); LYMPHOCYTES % 20.9 % (15.0-51.0); MEAN CORPUSCULAR HEMOGLOBIN 31.3 pg (29.0-33.0); MEAN CORPUSCULAR VOLUME 94.9 fl (82.0-101.0); MEAN PLATELET VOLUME 12.3 fl (7.4-10.4); MONOCYTE # 1.1 10^3/ul (0.3-0.9); MONOCYTES % 14.8 % (0.0-11.0); NEUTROPHIL # 4.4 10^3/ul (1.6-7.5); NEUTROPHILS % 60.2 % (39.0-77.0); PLATELET COUNT 126 10^3/UL (140-415); RED BLOOD COUNT 3.71 10^6/ul (4.20-5.40); RED CELL DISTRIBUTION WIDTH 13.5 % (11.5-14.5); WHITE BLOOD COUNT 7.4 10^3/ul (4.8-10.8)
--- NOTE | 2016-07-29 12:30 | PN ---
Date/Time of Note Date/Time of Note DATE: 07/29/16 TIME: 12:24 Assessment/Plan VTE Prophylaxis VTE Prophylaxis Intervention: SCD's Lines/Catheters IV Catheter Type (from Nrs): Peripheral IV Assessment/Plan Chief Complaint/Hosp Course Assessment and plan: 1. Acute recurrent hypoglycemia likely secondary to #2. Likely secondary to home medications/glipizide, improved 2. Acute pancreatitis, cause unclear. With no evidence of cholecystitis or cholelithiasis on abdominal ultrasound Lipase level has been improving significantly, we will continue to monitor 3. Elevated transaminases and bilirubin which was thought to be secondary to probable gallstone pancreatitis but no presence of gallstones on ultrasound. 4. High blood pressure with good home control. 5. Diabetes mellitus with very good home control, type 2. A1c 6.6 6. Mild hypernatremia. 7. Hyperproteinemia. 8. 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 PLAN: * Lipase levels has been improving, Continue NPO / D5 IVF / PPI * CT abd / pelvis with IV contrast noted, follow up with general surgery recommendations * Consider Endocrinology referral as outpatient * Check CK levels to r/o rhabdo and start lyrica for possible DM neuropathy causing back and extremity pain * Further interventions per clinical course and findings * Plan of care discussed with patient and daughter PROPHYLAXIS: SCDS / PPI Problems: Subjective 24 Hr Interval Summary Free Text/Dictation No acute changes Patient continues to complain of a moderate abdominal discomfort No nausea vomiting diarrhea N.p.o. due to pancreatitis Exam/Review of Systems Vital Signs Vitals Vital Signs Date Time Temp Pulse Resp B/P Pulse Ox O2 Delivery O2 Flow Rate FiO2 07/29/16 11:08 97.6 65 16 156/79 100 07/27/16 21:45 Room Air Exam General: The patient is well-developed, Not in acute distress. HEENT: Atraumatic, normocephalic. The pupils are equal and round . Neck: Supple with full range of motion. Chest: Normal expansion of the thorax during inspiration Lungs: Clear to auscultation bilaterally Heart: Normal S1-S2, Regular rhythm and rate. Abdomen: Soft , minimally tender in mid epigastric, nondistended , bowel sounds are present. Extremities: Normal to inspection, no edema no cyanosis Neurologic: Normal mental status,The patient is awake, alert and oriented . Results Result Diagram: 07/29/16 0641 07/29/16 0641 Results 24 hrs Laboratory Tests Test 07/28/16 13:16 07/28/16 16:41 07/28/16 21:09 07/29/16 01:35 Bedside Glucose 140 148 154 171 Test 07/29/16 05:24 07/29/16 06:41 07/29/16 09:55 Bedside Glucose 178 120 White Blood Count 7.4 Red Blood Count 3.71 L Hemoglobin 11.6 L Hematocrit 35.2 L Mean Corpuscular Volume 94.9 Mean Corpuscular Hemoglobin 31.3 Mean Corpuscular Hemoglobin Concent 33.0 Red Cell Distribution Width 13.5 Platelet Count 126 L Mean Platelet Volume 12.3 H Neutrophils % 60.2 Lymphocytes % 20.9 Monocytes % 14.8 H Eosinophils % 2.9 Basophils % 0.4 Nucleated Red Blood Cells % 0.0 Neutrophils # 4.4 Lymphocytes # 1.5 Monocytes # 1.1 H Eosinophils # 0.2 Basophils # 0.0 Nucleated Red Blood Cells # 0.0 Sodium Level 133 L Potassium Level 4.2 Chloride Level 106 Carbon Dioxide Level 29 Anion Gap 2 #L Blood Urea Nitrogen 9 Creatinine 0.72 Glucose Level 168 Calcium Level 7.5 L Magnesium Level 1.8 Total Bilirubin 1.9 H Direct Bilirubin 0.00 Indirect Bilirubin 1.9 H Aspartate Amino Transf (AST/SGOT) 39 Alanine Aminotransferase (ALT/SGPT) 75 H Alkaline Phosphatase 40 L Total Protein 4.4 L Albumin 2.2 L Globulin 2.20 Albumin/Globulin Ratio 1.00 Lipase 1063 H Medications Medications Current Medications Dextrose/Sodium Chloride (D5-1/2ns) 1,000 ml @ 100 mls/hr Q10H IV Last administered on 07/29/16 09:56; Admin Dose 100 MLS/HR; Start 07/26/16 at 15:30 Famotidine (Pepcid Iv) 20 mg BID IV Last administered on 07/29/16 09:57; Admin Dose 20 MG; Start 07/26/16 at 21:00 Morphine Sulfate (morphine) 2 mg Q4H PRN IV pain; Start 07/26/16 at 15:30 Ondansetron HCl (Zofran Inj) 4 mg Q6H PRN IV NAUSEA AND/OR VOMITING; Start at 15:30 Docusate Sodium (Colace) 100 mg BID PO Last administered on 07/27/16 08:12; Admin Dose 100 MG; Start 07/26/16 at 21:00 Miscellaneous Information 1 ea NOTE XX ; Start 07/26/16 at 16:30 Glucose (Glutose) 15 gm Q15M PRN PO DECREASED GLUCOSE; Start 07/26/16 at 16:30 Glucose (Glutose) 22.5 gm Q15M PRN PO DECREASED GLUCOSE; Start 07/26/16 at 16: 30 Dextrose (D50w Syringe) 25 ml Q15M PRN IV DECREASED GLUCOSE; Start 07/26/16 at 16:30 Dextrose (D50w Syringe) 50 ml Q15M PRN IV DECREASED GLUCOSE Last administered on 07/26/16 22:02; Admin Dose 50 ML; Start 07/26/16 at 16:30 Glucagon (Glucagen) 1 mg Q15M PRN IM DECREASED GLUCOSE; Start 07/26/16 at 16:30 Glucose (Glutose) 15 gm Q15M PRN BUCCAL DECREASED GLUCOSE; Start 07/26/16 at 16 :30 Diagnostic Test (Pha) (Accu-Chek) 1 ea Q4 XX Last administered on 07/29/16 06: 02; Admin Dose 1 EA; Start 07/26/16 at 21:00 Atorvastatin Calcium (Lipitor) 40 mg QHS PO Last administered on 07/28/16 21: 09; Admin Dose 40 MG; Start 07/26/16 at 21:00 Meclizine HCl (Antivert) 25 mg Q8H PRN PO DIZZINESS; Start 07/26/16 at 20:30 Propranolol HCl (Inderal) 10 mg TID PO Last administered on 07/27/16 13:07; Admin Dose 10 MG; Start 07/26/16 at 21:00 Benazepril HCl (Lotensin) 20 mg DAILY PO Last administered on 07/29/16 09:58; Admin Dose 20 MG; Start 07/27/16 at 09:00 Pregabalin (Lyrica) 75 mg BID PO Last administered on 07/29/16 09:56; Admin Dose 75 MG; Start 07/27/16 at 12:00 Alendronate Sodium (Fosamax) 70 mg Velasquez PO Last administered on 07/27/16 14:01; Admin Dose 70 MG; Start 07/27/16 at 14:00 Clonidine (Catapres) 0.1 mg Q8 PRN PO ELEVATED BLOOD PRESSURE Last administered on 07/27/16t 21:04; Admin Dose 0.1 MG; Start 07/27/16 at 20:30 JOSE FELDMAN MD Jul 29, 2016 12:30
--- NOTE | 2016-07-29 15:06 | PN ---
Date/Time of Note Date/Time of Note DATE: 07/29/16 TIME: 15:02 Assessment/Plan Lines/Catheters IV [facility] ([facility]): Peripheral IV Assessment/Plan Chief Complaint/Hosp Course 1. Abdominal pain with elevated amylase, lipase, suggestive of pancreatitis; however, etiology is unknown. There is no evidence of gallstones. She does not recall being bitten by a spider; however, they did own a farm many years ago. Her triglycerides are within normal. CA 19-9 is within normal at 3.1. -MRCP. -GI consultation. -Judicious fluids -Close monitoring 2. Leukocytosis, resolved 3. Hypoalbuminemia. Will benefit from nutritional optimization. 4. Hyperbilirubinemia and abnormal LFTs may be secondary to abdominal pain with elevated amylase, lipase, suggestive of pancreatitis; however, etiology is unknown. -as above. 5. Diabetes. Continue nutrition and medication control. 6. Hypertension. Continue nutrition and medication control. 7. Cardiac dysrhythmia. Continue rate control and electrolyte optimization. 8. Dyslipidemia. Continue nutrition and medication control. Thank you Problems: Subjective 24 Hr Interval Summary No pain. No n/v. No f/c. No cp/sob. No cough. No sz. No rash. No bleeding. No bloating. No pyuria. Bowel function. Exam/Review of Systems Vital Signs Vitals Vital Signs Date Time Temp Pulse Resp B/P Pulse Ox O2 Delivery O2 Flow Rate FiO2 07/29/16 12:54 58 07/29/16 11:08 97.6 16 156/79 100 07/27/16 21:45 Room Air Exam Free Text/Dictation GENERAL: No acute distress, comfortable, pleasant. HEENT: Pupils equal, reactive. No scleral icterus. Mucous membranes are moist. NECK: Supple. No JVD. PULMONARY: Normal respiratory effort. No wheezing. HEART: S1, S2 present. ABDOMEN: Soft, minimally tender in the epigastric region. No rebound, no guarding, not rigid. Negative Renee's. EXTREMITIES: No edema. VASCULAR: Cap refill less than 2 seconds. NEUROLOGIC: Alert, oriented, moves all 4 extremities grossly. Results Result Diagram: 07/29/16 0641 07/29/16 0641 LÁZARO DENT MD Jul 29, 2016 15:05
[2016-07-30] VITALS (13 sets, daily range): BP systolic 111–175; BP diastolic 59–78; PULSE 52–63; RESP 18–20
[2016-07-30] MEDS: ACCU-CHEK XX SCH ×6 (00:21→21:20)
[2016-07-30 06:49] LABS: ADD SCAN DIFF NO
[2016-07-30 06:52] LABS: HEMATOCRIT 38.6 % (37.0-47.0); HEMOGLOBIN 12.8 g/dl (12.0-16.0); MEAN CORPUSCULAR HEMOGLOBIN 31.8 pg (29.0-33.0); MEAN CORPUSCULAR HGB CONC 33.2 g/dl (32.0-37.0); MEAN CORPUSCULAR VOLUME 95.8 fl (82.0-101.0); MEAN PLATELET VOLUME 11.3 fl (7.4-10.4); PLATELET COUNT 137 10^3/UL (140-415); RED BLOOD COUNT 4.03 10^6/ul (4.20-5.40); RED CELL DISTRIBUTION WIDTH 13.3 % (11.5-14.5); WHITE BLOOD COUNT 7.4 10^3/ul (4.8-10.8)
[2016-07-30 07:11] LABS: ALBUMIN 2.5 g/dl (3.3-4.9)
[2016-07-30 07:14] LABS: ALBUMIN/GLOBULIN RATIO 0.96; BILIRUBIN,INDIRECT 1.8 mg/dl (0-1.1); BILIRUBIN,TOTAL 1.8 mg/dl (0.2-1.3); CREATININE 0.7 mg/dl (0.44-1.00); TOTAL PROTEIN 5.1 g/dl (6.1-8.1)
[2016-07-30 07:15] LABS: CALCIUM 7.7 mg/dl (8.4-10.2); MAGNESIUM 1.8 mg/dl (1.7-2.5)
[2016-07-30] MEDS: morphine 2 MG INJ IV PRN ×3 (07:49→08:42)
[2016-07-30] MEDS: DOCUSATE SODIUM 100 MG CAP PO SCH ×2 (08:45→21:19)
[2016-07-30] MEDS: DEXTROSE 5%-0.45% NACL 1,000 ML IV SCH (08:45)
[2016-07-30] MEDS: PREGABALIN 75 MG CAP PO SCH ×2 (08:45→21:19)
[2016-07-30] MEDS: FAMOTIDINE 20 MG INJ IV SCH (08:45)
[2016-07-30] MEDS: MECLIZINE 25 MG TAB PO PRN (08:53)
--- NOTE | 2016-07-30 08:53 | RADRPT ---
PROCEDURE: MRCP. CLINICAL INDICATION: Abdominal pain. Pancreatitis. Hypoglycemia. TECHNIQUE: MRCP was performed on the a high-resolution, high Arabella field strength scanner. Patien t was examined without contrast. 3-D coronal rotating MIP images of the biliary tree are available for review. COMPARISON: CT abdomen and pelvis 07/27/2016. FINDINGS: Gallbladder is unremarkable. The biliary tree is not dilated. No intrahepatic nor extrahepatic bili edouard dilatation is present. No filling defect or choledocholithiasis is seen. There is no stricture o r obstruction. Multiple sub centimeter small cysts are seen throughout the pancreas some of which are communicating with the pancreatic duct in keeping with intraductal papillary mucinous neoplasm ( IPMN). The main pancreatic duct is not dilated. There is no peripancreatic fluid collection/inflammatory changes. Multiple T2 hyperintense cysts are seen in both hepatic lobes. Redemonstrated is a small hemangioma in the right anterior hepatic lobe on image 5-13. There are large perisplenic varices with splenore nal shunt. The spleen is not enlarged. A few cyst are seen in the spleen. There are a few small c ysts in the left kidney measures up to 2.5 cm in the upper pole left kidney. Significant subcutaneou s edema in bilateral flanks. Small bilateral pleural effusions. IMPRESSION: 1. No biliary ductal dilatation. No choledocholithiasis. 2. No evidence of peripancreatic fluid/inflammatory changes. 3. Multiple sub centimeter cystic structures in the pancreas. Some of which communicate with the p ancreatic duct in keeping with IPMN and some with no connection likely representing retention cysts. 4. Liver cysts and a small hemangioma. 5. Left renal cyst. 6. Large perisplenic varices with splenorenal shunt. 7. Small splenic cyst. 8. Marked subcutaneous edema in bilateral flanks. 9. Small bilateral pleural effusions. RPTAT: BB .Rosie Garcia MD, Date Time Electronically viewed and signed by .Rosie Garcia MD, MD on 07/30/2016 08:53 .O/
[2016-07-30] MEDS: BENAZEPRIL 20 MG TAB PO SCH (09:00)
[2016-07-30] MEDS: PROPRANOLOL 10 MG TAB PO SCH ×3 (09:02→21:20)
[2016-07-30 10:49] LABS: EOSINOPHILS # 0.1 10^3/ul (0.0-0.5); LYMPHOCYTES # 1.6 10^3/ul (0.8-2.9); MONOCYTE # 0.8 10^3/ul (0.3-0.9); MYELOCYTES # 0.1; NEUTROPHIL # 4.6 10^3/ul (1.6-7.5)
--- NOTE | 2016-07-30 11:05 | PN ---
Date/Time of Note Date/Time of Note DATE: 07/30/16 TIME: 11:01 Assessment/Plan VTE Prophylaxis VTE Prophylaxis Intervention: SCD's Lines/Catheters IV Catheter Type (from Nrs): Peripheral IV Assessment/Plan Chief Complaint/Hosp Course Assessment and plan: 1. Acute recurrent hypoglycemia likely secondary to #2. Likely secondary to home medications/glipizide, improved 2. Acute pancreatitis, cause unclear. With no evidence of cholecystitis or cholelithiasis on abdominal ultrasound No evidence of choledocholithiasis on MRCP Lipase level has been improving significantly, we will continue to monitor 3. Elevated transaminases and bilirubin which was thought to be secondary to probable gallstone pancreatitis but no presence of gallstones on ultrasound. 4. High blood pressure with good home control. 5. Diabetes mellitus with very good home control, type 2. A1c 6.6 6. Mild hypernatremia. 7. Hyperproteinemia. 8. 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 PLAN: * Lipase levels has been improving, start full liquid diet/ PPI * CT abd / pelvis with IV contrast noted, follow up with general surgery recommendations * Consider Endocrinology referral as outpatient * Check CK levels to r/o rhabdo and start lyrica for possible DM neuropathy causing back and extremity pain * Further interventions per clinical course and findings * Plan of care discussed with patient and daughter PROPHYLAXIS: SCDS / PPI Plan to discharge home tomorrow with follow-up with claim trainee Problems: Subjective 24 Hr Interval Summary Free Text/Dictation Patient denies of any abdominal pain No nausea vomiting diarrhea Complains of having tingling in her forehead No generalized weakness no tingling loss of motor or sensory in upper and lower extremities Exam/Review of Systems Vital Signs Vitals Vital Signs Date Time Temp Pulse Resp B/P Pulse Ox O2 Delivery O2 Flow Rate FiO2 07/30/16 08:32 61 07/30/16 07:15 98.3 18 117/70 100 07/27/16 21:45 Room Air Exam General: The patient is well-developed, Not in acute distress. HEENT: Atraumatic, normocephalic. The pupils are equal and round . Neck: Supple with full range of motion. Chest: Normal expansion of the thorax during inspiration Lungs: Clear to auscultation bilaterally Heart: Normal S1-S2, Regular rhythm and rate. Abdomen: Soft , nontender, nondistended , bowel sounds are present. Extremities: Normal to inspection, no edema no cyanosis Neurologic: Normal mental status,The patient is awake, alert and oriented . Results Result Diagram: 07/30/16 0625 07/30/16 0625 Results 24 hrs Laboratory Tests Test 07/29/16 13:10 07/29/16 17:51 07/29/16 20:02 07/30/16 00:15 Bedside Glucose 143 152 149 115 Test 07/30/16 05:47 07/30/16 06:25 07/30/16 09:36 Bedside Glucose 152 158 White Blood Count 7.4 Red Blood Count 4.03 L Hemoglobin 12.8 Hematocrit 38.6 Mean Corpuscular Volume 95.8 Mean Corpuscular Hemoglobin 31.8 Mean Corpuscular Hemoglobin Concent 33.2 Red Cell Distribution Width 13.3 Platelet Count 137 L Mean Platelet Volume 11.3 H Neutrophils % 62.0 Band Neutrophils % 2.0 Lymphocytes % 22.0 Monocytes % 11.0 Eosinophils % 1.0 Basophils % Myelocytes % 1.0 H Promyelocytes % 1.0 H Nucleated Red Blood Cells % Neutrophils # 4.6 Lymphocytes # 1.6 Monocytes # 0.8 Eosinophils # 0.1 Basophils # Myelocytes # 0.1 Promyelocytes # 0.1 Nucleated Red Blood Cells # Differential Comment MANUAL DIFF Large Platelets RARE Sodium Level 139 Potassium Level 4.0 Chloride Level 104 Carbon Dioxide Level 29 Anion Gap 10 # Blood Urea Nitrogen 7 Creatinine 0.70 Glucose Level 169 Calcium Level 7.7 L Magnesium Level 1.8 Total Bilirubin 1.8 H Direct Bilirubin 0.00 Indirect Bilirubin 1.8 H Aspartate Amino Transf (AST/SGOT) 44 Alanine Aminotransferase (ALT/SGPT) 65 Alkaline Phosphatase 42 Total Protein 5.1 L Albumin 2.5 L Globulin 2.60 Albumin/Globulin Ratio 0.96 Lipase 437 H Medications Medications Current Medications Dextrose/Sodium Chloride (D5-1/2ns) 1,000 ml @ 100 mls/hr Q10H IV Last administered on 07/30/16 08:45; Admin Dose 100 MLS/HR; Start 07/26/16 at 15:30 Famotidine (Pepcid Iv) 20 mg BID IV Last administered on 07/30/16 08:45; Admin Dose 20 MG; Start 07/26/16 at 21:00 Morphine Sulfate (morphine) 2 mg Q4H PRN IV pain Last administered on 07:49; Admin Dose 2 MG; Start 07/26/16 at 15:30 Ondansetron HCl (Zofran Inj) 4 mg Q6H PRN IV NAUSEA AND/OR VOMITING; Start at 15:30 Docusate Sodium (Colace) 100 mg BID PO Last administered on 07/27/16 08:12; Admin Dose 100 MG; Start 07/26/16 at 21:00 Miscellaneous Information 1 ea NOTE XX ; Start 07/26/16 at 16:30 Glucose (Glutose) 15 gm Q15M PRN PO DECREASED GLUCOSE; Start 07/26/16 at 16:30 Glucose (Glutose) 22.5 gm Q15M PRN PO DECREASED GLUCOSE; Start 07/26/16 at 16: 30 Dextrose (D50w Syringe) 25 ml Q15M PRN IV DECREASED GLUCOSE; Start 07/26/16 at 16:30 Dextrose (D50w Syringe) 50 ml Q15M PRN IV DECREASED GLUCOSE Last administered on 07/26/16 22:02; Admin Dose 50 ML; Start 07/26/16 at 16:30 Glucagon (Glucagen) 1 mg Q15M PRN IM DECREASED GLUCOSE; Start 07/26/16 at 16:30 Glucose (Glutose) 15 gm Q15M PRN BUCCAL DECREASED GLUCOSE; Start 07/26/16 at 16 :30 Diagnostic Test (Pha) (Accu-Chek) 1 ea Q4 XX Last administered on 07/30/16 05: 50; Admin Dose 1 EA; Start 07/26/16 at 21:00 Meclizine HCl (Antivert) 25 mg Q8H PRN PO DIZZINESS Last administered on 08:53; Admin Dose 25 MG; Start 07/26/16 at 20:30 Propranolol HCl (Inderal) 10 mg TID PO Last administered on 07/30/16 09:02; Admin Dose 10 MG; Start 07/26/16 at 21:00 Benazepril HCl (Lotensin) 20 mg DAILY PO Last administered on 07/29/16 09:58; Admin Dose 20 MG; Start 07/27/16 at 09:00 Pregabalin (Lyrica) 75 mg BID PO Last administered on 07/30/16 08:45; Admin Dose 75 MG; Start 07/27/16 at 12:00 Alendronate Sodium (Fosamax) 70 mg Velasquez PO Last administered on 07/27/16 14:01; Admin Dose 70 MG; Start 07/27/16 at 14:00 Clonidine (Catapres) 0.1 mg Q8 PRN PO ELEVATED BLOOD PRESSURE Last administered on 07/27/16 21:04; Admin Dose 0.1 MG; Start 07/27/16 at 20:30 JOSE FELDMAN MD Jul 30, 2016 11:05
[2016-07-30] MEDS: INSULIN ASPART [NOVOLOG] 3 ML PEN SC SCH ×3 (11:50→21:00)
--- NOTE | 2016-07-30 13:12 | RADRPT ---
PROCEDURE: CT Brain without contrast. CLINICAL INDICATION: Neurologic deficit TECHNIQUE: A CT of the brain was performed on multidetector high-resolution CT scanner utilizing a xial sections from the skull base through the vertex without contrast. One or more of the following dose reduction techniques were used: Automated exposure control, Adjustment of the mA and/or kV acc ording to patient size, and/or use of iterative reconstruction technique. DOSE: CTDI = 45 mGy and the DLP = 630 mGy-cm. COMPARISON: None available FINDINGS: No acute intracranial hemorrhage, significant mass effect or midline shift. Patchy hypoattenuation o f the cerebral white matter is age indeterminate but may represent moderate subacute to chronic micr ovascular ischemic changes. Vascular calcifications. Prominence of the cortical sulci and ventricles are related to mild cerebral volume loss. Right anterior ethmoid 4 mm osteoma. IMPRESSION: No acute intracranial hemorrhage or significant mass effect. Moderate subacute to chronic microvascular disease and intracranial atherosclerosis. If there is concern for recent stroke, consider brain MRI for further evaluation. RPTAT: AA .Omid Schroeder MD, Date Time Electronically viewed and signed by .Omid Schroeder MD, on 07/30/2016 13:11 .T/
--- NOTE | 2016-07-30 21:55 | RADRPT ---
PROCEDURE: CT Brain without contrast. CLINICAL INDICATION: PT FELL HIT HEAD TECHNIQUE: A multiplanar CT of the brain was performed on a CT scanner utilizing axial imaging fro m the skull base through the vertex without IV contrast. The CTDIvol is 45.01 mGy and the DLP is 72 0.23 mGycm. One or more of the following dose reduction techniques were utilized: Automated exposu re control, adjustment of the mA and/or kV according to patient size, use of iterative reconstructio n technique. COMPARISON: CT brain 07/30/2016. FINDINGS: No evidence of intracranial hemorrhage or abnormal extra-axial fluid collection. Moderate patchy and confluent periventricular and subcortical white matter low attenuation compatibl e with sequelae of chronic microvascular ischemic injury. The brain parenchyma is otherwise normal attenuation and morphology with preservation of tovar white differentiation. The ventricles and suba rachnoid spaces are prominent compatible with age appropriate volume loss. Atherosclerotic calcification of the internal carotid and vertebral arteries. The basal cisterns, posterior fossa contents, brainstem, craniocervical junction, orbits, pituitary axis, paranasal sinuses, mastoid air cells, and calvarium are unremarkable. IMPRESSION: 1. No intracranial hemorrhage or acute intracranial abnormality. 2. No large transcortical infarct or interval change. No edema, mass effect or shift. 3. Moderate chronic microvascular ischemic change and age related volume loss. 4. Early ischemic injury may be occult to CT imaging and diffusion weighted MRI may be considered as clinically warranted. RPTAT:AAJJ Physician Javon Date Time Electronically viewed and signed by Physician Javon on 07/30/2016 21:54 JUAN/
[2016-07-31] VITALS (11 sets, daily range): BP systolic 111–219; BP diastolic 62–145; PULSE 49–54; RESP 18–20
[2016-07-31] MEDS: ACCU-CHEK XX SCH ×2 (01:00→05:00)
[2016-07-31] MEDS ORDERED: ACCU-CHEK XX SCH (02:00)
[2016-07-31] MEDS: DEXTROSE 5%-0.45% NACL 1,000 ML IV SCH (07:20)
[2016-07-31] MEDS: INSULIN ASPART [NOVOLOG] 3 ML PEN SC SCH ×2 (07:55→12:17)
--- NOTE | 2016-07-31 07:56 | PN ---
Date/Time of Note Date/Time of Note DATE: 07/30/16 TIME: 13:51 Assessment/Plan Lines/Catheters IV Catheter Type (from [facility]): Peripheral IV Assessment/Plan Chief Complaint/Hosp Course 1. Abdominal pain with elevated amylase, lipase, suggestive of pancreatitis; however, etiology is unknown. There is no evidence of gallstones. She does not recall being bitten by a spider; however, they did own a farm many years ago. Her triglycerides are within normal. CA 19-9 is within normal at 3.1. MRCP with IPMN and pancreatic cysts. -HBS consult -GI consultation. -Judicious fluids -Close monitoring 2. Leukocytosis, resolved 3. Hypoalbuminemia. Will benefit from nutritional optimization. 4. Hyperbilirubinemia and abnormal LFTs may be secondary to abdominal pain with elevated amylase, lipase, suggestive of pancreatitis; however, etiology is unknown. -as above. 5. Diabetes. Continue nutrition and medication control. 6. Hypertension. Continue nutrition and medication control. 7. Cardiac dysrhythmia. Continue rate control and electrolyte optimization. 8. Dyslipidemia. Continue nutrition and medication control. Thank you Late entry 07/30 Problems: Subjective 24 Hr Interval Summary No pain. No n/v. No f/c. No cp/sob. No cough. No sz. No rash. No bleeding. No bloating. No pyuria. Bowel function. Pancreatic enzymes improving. MRCP noted. Exam/Review of Systems Vital Signs Vitals Vital Signs Date Time Temp Pulse Resp B/P Pulse Ox O2 Delivery O2 Flow Rate FiO2 07/31/16 07:44 98.2 160 20 219/145 98 07/27/16 21:45 Room Air Intake and Output 07/30/16 07/30/16 07/31/16 15:00 23:00 07:00 Intake Total 300 ml Balance 300 ml Exam Free Text/Dictation GENERAL: No acute distress, comfortable, pleasant. HEENT: Pupils equal, reactive. No scleral icterus. Mucous membranes are moist. NECK: Supple. No JVD. PULMONARY: Normal respiratory effort. No wheezing. HEART: S1, S2 present. ABDOMEN: Soft, minimally tender in the epigastric region. No rebound, no guarding, not rigid. Negative Renee's. EXTREMITIES: No edema. VASCULAR: Cap refill less than 2 seconds. NEUROLOGIC: Alert, oriented, moves all 4 extremities grossly. Results Free Text/Dictation MRCP: 1. No biliary ductal dilatation. No choledocholithiasis. 2. No evidence of peripancreatic fluid/inflammatory changes. 3. Multiple sub centimeter cystic structures in the pancreas. Some of which communicate with the pancreatic duct in keeping with IPMN and some with no connection likely representing retention cysts. 4. Liver cysts and a small hemangioma. 5. Left renal cyst. 6. Large perisplenic varices with splenorenal shunt. 7. Small splenic cyst. 8. Marked subcutaneous edema in bilateral flanks. 9. Small bilateral pleural effusions. Result Diagram: 07/30/16 0625 07/30/16 0625 LÁZARO DENT MD Jul 31, 2016 07:56
--- NOTE | 2016-07-31 07:56 | PN ---
Date/Time of Note Date/Time of Note DATE: 07/31/16 TIME: 07:56 Assessment/Plan Lines/Catheters IV Catheter Type (from [facility]): Peripheral IV Assessment/Plan Chief Complaint/Hosp Course 1. Abdominal pain with elevated amylase, lipase, suggestive of pancreatitis; however, etiology is unknown. There is no evidence of gallstones. She does not recall being bitten by a spider; however, they did own a farm many years ago. Her triglycerides are within normal. CA 19-9 is within normal at 3.1. MRCP with IPMN and pancreatic cysts. -HBS consult -GI consultation. -Judicious fluids -Close monitoring 2. Leukocytosis, resolved 3. Hypoalbuminemia. Will benefit from nutritional optimization. 4. Hyperbilirubinemia and abnormal LFTs may be secondary to abdominal pain with elevated amylase, lipase, suggestive of pancreatitis; however, etiology is unknown. -as above. 5. Diabetes. Continue nutrition and medication control. 6. Hypertension. Continue nutrition and medication control. 7. Cardiac dysrhythmia. Continue rate control and electrolyte optimization. 8. Dyslipidemia. Continue nutrition and medication control. Thank you Problems: Subjective 24 Hr Interval Summary Fell last night and hit her head. CT negative. No pain. No n/v. No f/c. No cp/sob. No cough. No sz. No rash. No bleeding. No bloating. No pyuria. Bowel function. Pancreatic enzymes improving. MRCP noted. Exam/Review of Systems Vital Signs Vitals Vital Signs Date Time Temp Pulse Resp B/P Pulse Ox O2 Delivery O2 Flow Rate FiO2 07/31/16 07:44 98.2 160 20 219/145 98 07/27/16 21:45 Room Air Intake and Output 07/30/16 07/30/16 07/31/16 15:00 23:00 07:00 Intake Total 300 ml Balance 300 ml Exam Free Text/Dictation GENERAL: No acute distress, comfortable, pleasant. HEENT: Pupils equal, reactive. No scleral icterus. Mucous membranes are moist. NECK: Supple. No JVD. PULMONARY: Normal respiratory effort. No wheezing. HEART: S1, S2 present. ABDOMEN: Soft, minimally tender in the epigastric region. No rebound, no guarding, not rigid. Negative Renee's. EXTREMITIES: No edema. VASCULAR: Cap refill less than 2 seconds. NEUROLOGIC: Alert, oriented, moves all 4 extremities grossly. Results Result Diagram: 07/30/16 0625 07/30/16 0625 LÁZARO DENT MD Jul 31, 2016 07:56
[2016-07-31 08:08] LABS: ADD SCAN DIFF NO
[2016-07-31 08:15] LABS: BASOPHILS % 0.3 % (0.0-2.0); EOSINOPHILS # 0.1 10^3/ul (0.0-0.5); EOSINOPHILS % 2.2 % (0.0-7.0); HEMATOCRIT 34.4 % (37.0-47.0); HEMOGLOBIN 11.7 g/dl (12.0-16.0); LYMPHOCYTES # 1.9 10^3/ul (0.8-2.9); LYMPHOCYTES % 30.4 % (15.0-51.0); MEAN CORPUSCULAR HEMOGLOBIN 32.3 pg (29.0-33.0); MEAN PLATELET VOLUME 11.6 fl (7.4-10.4); MONOCYTE # 1.1 10^3/ul (0.3-0.9); MONOCYTES % 18.3 % (0.0-11.0); NEUTROPHILS % 48.5 % (39.0-77.0); PLATELET COUNT 135 10^3/UL (140-415); RED BLOOD COUNT 3.62 10^6/ul (4.20-5.40); RED CELL DISTRIBUTION WIDTH 13.3 % (11.5-14.5); WHITE BLOOD COUNT 6.2 10^3/ul (4.8-10.8)
[2016-07-31] MEDS: BENAZEPRIL 20 MG TAB PO SCH (08:17)
[2016-07-31] MEDS: PROPRANOLOL 10 MG TAB PO SCH ×2 (08:17→12:11)
[2016-07-31] MEDS: DOCUSATE SODIUM 100 MG CAP PO SCH (08:17)
[2016-07-31 08:22] LABS: ALBUMIN 2.3 g/dl (3.3-4.9)
[2016-07-31 08:23] LABS: POTASSIUM 3.5 mmol/L (3.5-5.1)
[2016-07-31 08:25] LABS: ALBUMIN/GLOBULIN RATIO 0.92; BILIRUBIN,INDIRECT 1.8 mg/dl (0-1.1); BILIRUBIN,TOTAL 1.8 mg/dl (0.2-1.3); CREATININE 0.7 mg/dl (0.44-1.00); TOTAL PROTEIN 4.8 g/dl (6.1-8.1)
[2016-07-31 08:26] LABS: CALCIUM 7.7 mg/dl (8.4-10.2); MAGNESIUM 1.7 mg/dl (1.7-2.5)
[2016-07-31] MEDS: PREGABALIN 75 MG CAP PO SCH (08:26)
[2016-07-31] MEDS ORDERED: FAMOTIDINE 20 MG TAB PO SCH (09:00)
--- NOTE | 2016-07-31 10:49 | PDOCDIS ---
Discharge Instructions CONDITION Patient Condition: Good HOME CARE INSTRUCTIONS: Diet Instructions: Low Fat /Cholesterol ACTIVITY: Activity Restrictions: Slowly Increase Activity Rest between Activity Avoid heavy lifting FOLLOW UP/APPOINTMENTS Appointments Follow-up with bill poster installer and primary care physician as outpatient JOSE FELDMAN MD Jul 31, 2016 10:49
[2016-07-31] MEDS ORDERED: DOCU-216 PO (10:53)
[2016-07-31] MEDS ORDERED: ASPI-664 PO (10:53)
[2016-07-31] MEDS ORDERED: FAMO20TA18 PO (10:53)
[2016-07-31] MEDS ORDERED: METF500T4 PO (10:53)
[2016-07-31] MEDS ORDERED: NATE120T PO (10:53)
[2016-07-31] MEDS ORDERED: ONDA4TAB8 PO (10:55)
[2016-07-31] MEDS: MECLIZINE 25 MG TAB PO PRN (12:12)
--- NOTE | 2016-07-31 15:20 | CONS ---
[facility] INITIAL INPATIENT CONSULTATION NOTE DATE OF CONSULTATION: 07/31/2016 PLACE OF SERVICE: [facility] 5th floor on 07/31/2016. ASSESSMENT AND PLAN: A very pleasant 81-year-old with multiple comorbid issues including BMI 26.3 as well as diabetes and hypertension presenting with pancreatitis which is likely a small stone that passed her biliary system as well as multiple small cysts in the pancreas body as well as liver and kidney reminiscent of polycystic disease, although the ovaries do not contain significant amount of cysts that we can see. Most of these cysts appear to be small and benign appearing. 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 She could definitely also benefit from an elective laparoscopic cholecystectomy. Once we have the information on the pancreas with endoscopic ultrasound in order to make sure that we plan for the operation appropriately. I do not get a sense that any of these lesions are cancerous and therefore do not foresee a high probability of a partial pancreatectomy to be in the patient's near future. I explained all this to the patient and her daughter and answered all their questions to the best of my ability. I believe that the patient and her daughter appeared to understand and agree with the plan. With above assessment, I recommend the followin. Continue current care and discharged home when medically stable. 2. Outpatient endoscopic ultrasound for evaluation of the pancreas cyst and possible ultrasound-guided biopsy or cyst aspiration which fluid checks for CEA and the use of carmine in our usual evaluation of pancreatic cyst. 3. Plan for laparoscopic, possible open cholecystectomy after above. 4. Follow up with my office. Thank you again for allowing us to participate in the care of this very pleasant lady and her wonderful family. If there are any questions, please feel free to contact me at [phone]. Updated clinical summary: Patient is a very pleasant 81-year-old lady with comorbid issues including BMI 26.3, who was admitted through the emergency department at [facility] on 07/27/2016 for hypoglycemia as well as acute pancreatitis of unclear etiology, but likely due to biliary stone disease. During her workup, she was discovered to have cystic areas of her pancreas. COMORBIDITIES: 1. BMI 26. 2. Hypertension. 3. Diabetes mellitus type 2. 4 Mild hypernatremia. 5. Hyperproteinemia. 6. Episodes of hypoglycemia. 7. Acute pancreatitis 07/2016. 8. Dyslipidemia. 9. Chronic dizziness. 10. Osteoporosis. DATE OF ADMISSION: 07/26/2016 HISTORY OF PRESENT ILLNESS: The patient is a very pleasant 81-year-old lady with above-mentioned comorbidities who we were kindly asked to consult regarding management of her pancreatic cyst. During my visit with the patient, she did not report any significant abdominal pain but the family reported 1- month history of mid upper epigastric type discomfort or pain, not associated with significant nausea or vomiting. No changes in bowel or bladder habits, and no blood in the stool or urine. No issues with pancreatitis in the past. She does report having on and off swelling of her ankles bilaterally. ALLERGIES: NO KNOWN DRUG ALLERGIES. MEDICATIONS: None. INPATIENT MEDICATIONS: Were carefully reviewed in the electronic record system. SOCIAL HISTORY: The patient lives with her family and does not report any smoking, drinking, or intravenous drug use. FAMILY HISTORY: No mention of major medical, surgical or oncologic problems in the family. REVIEW OF SYSTEMS: Other than the above-mentioned, there are no other pertinent positives or pertinent negatives in a complete 14-point review of systems. PHYSICAL EXAMINATION: GENERAL: The patient appears to be a very pleasant lady of nonHispanic descent from [place] descent lying in bed comfortably and in no acute distress. BMI is 26.3. VITAL SIGNS: Temperature 98.0, blood pressure 123/68, pulse 54, respiratory rate 18, pulse oximetry 98% on room air. HEENT: Normocephalic and atraumatic. Extraocular muscles and hearing are grossly intact bilaterally and symmetrically. Sclerae are nonicteric. Oral cavity is clear; oral mucosa appeared to be pink and moist. Dentition: fair to poor. NECK: Supple. There is no lymphadenopathy or JVD. There is no submental, submandibular or supraclavicular lymphadenopathy. CHEST: Rises symmetrically with each breath; patient is breathing comfortably. There are no audible wheezes, rales or rhonchi on the gross exam. HEART: Pulse is regular and palpable on the left wrist. Capillary refill was normal. Carotid pulses are palpable bilaterally and symmetrically in the neck. EXTREMITIES: Lower extremities contain no pitting edema around the ankles bilaterally and symmetrically. ABDOMEN: Abdomen is soft, nontender and nondistended. There are no peritoneal signs or guarding. No evidence of ascites, organomegaly, caput medusae, engorged subcutaneous veins, or other abnormalities. SKIN: Appears to be pink and feels warm to touch. NEUROLOGIC: Awake, alert, and follows commands appropriately. LABORATORY: White blood cell count 6.2, down from admission level of 13.6, platelets 135 with the highest recorded at 155 on admission. Electrolytes are normal. CO2 of 27, creatinine 0.7, total bilirubin 1.8, AST 56, ALT 77, alkaline phosphatase 59. Note that admission alkaline phosphatase was 58 and total bilirubin was 1.0. Lipase on admission was 1479 with today's value at 230. CA 19-9 of 3.1. Amylase on admission was 290 and the next day was 210. Triglycerides were 57. INR 1.18. Urinalysis was negative. IMAGING: The patient has undergone multiple images including ultrasound of the gallbladder on 07/26/2016. CT of the abdomen and pelvis with and without contrast on 07/27/2016. Abdominal MRI on 07/30/[address] on 07/30/2016 as well. The MRCP showed no biliary ductal dilatation and no choledocholithiasis. There was evidence of peripancreatic fluid/inflammatory changes, but no necrosis. Multiple subcentimeter cysts structures in the pancreas were noted, some of these communicated with the pancreatic duct in keeping with IPMN and some with no connection likely representing retention cyst. There were also cysts in the liver as well as the kidneys. There was large perisplenic varices with splenorenal shunt and a small splenic cyst. Marked subcutaneous edema in bilateral flanks and small bilateral pleural effusions were noted as well. Dictated By: RASHEEDA DEE/MARCY Conf#: [id number] DID#: [id number] MTDD
--- NOTE | 2016-07-31 17:29 | DS ---
DATE OF ADMISSION: 07/26/2016 DATE OF DISCHARGE: 07/31/2016 CONSULTANTS: Dr. Bruno Mclaughlin. DIAGNOSES: 1. Pancreatitis, etiology was unknown, no evidence of gallstone. Triglyceride was within normal li mits. CA 19-9 was within normal limits at 3.3. The patient will follow up with water pump installer as outpatient. 2. Leukocytosis, resolved. 3. Hypoalbuminemia, optimize nutrition. 4. Transaminitis, improved. 5. Diabetic mellitus. Continue metformin. 6. Essential hypertension. Continue home medication. 7. Cardiac arrhythmia. Rate controlled. 8. Dyslipidemia. Continue statin. 9. Mild hypernatremia, resolved. 10. Acute recurrent hypoglycemia. This is likely secondary to glipizide, which was withheld. Pearl ent will be discharged home on metformin only. MEDICATIONS: 1. Aspirin 81 mg daily. 2. Colace 100 mg. 3. Protonix 40 mg. 4. Zofran 4 mg. 5. Fosamax 70 mg 6. Atorvastatin 40 mg. 7. Meclizine 25 mg. 8. Metformin 400 mg 9. Propranolol 10 mg 10. ____ 5 mg. ALLERGIES: NO KNOWN DRUG ALLERGIES. HOSPITAL COURSE: This is an 81-year-old female with past medical history of hypertension, dyslipide marisol, diabetes mellitus, chronic dizziness, osteoporosis who was brought to [facility] room secondary to having recurrent hypoglycemia. The patient has been on 2 diabetes mellitus medications as well as metformin, which she has been on for years and never had an issue, although she has been having signs of lethargy and weakness. The patient's blood glucose was found to be 30s and 40s at home, 911 was called and patient was brought into the emergency room where her sugar was found to be 40 by the EMS personnel. The patient was tr eated with D5 amp of glucose. The patient was brought into the emergency room and her blood glucose was found to be in the 70s, was started on dextrose and was admitted to telemetry floor. The patie nt complains of having abdominal discomfort, also was found to have pancreatitis with lipase of 1479 . Serial imaging was done with gallbladder ultrasound which demonstrated normal gallbladder without gallstones. A small amount of free fluid seen ____ uncertain etiology. The CT of the abdomen and pelvis was obtained which ____the splenic bed which drained into the rest of left renal vein despite appearance ____of portal hypertension; however, no other varices are seen. There is no splenomegal y or clinically significant ascites. Multiple hepatic cysts. Small hemangioma. small splenic cyst, tiny cyst lesion of the pancreas, likely representing pseudocyst or benign cyst and cystic masses. MRCP was obtained which showed no biliary ductal dilation or choledocholithiasis. No evidence of p eripancreatic fluid, inflammatory changes, ____ cystic structure in the pancreas which communicated with the pancreatic duct and keeping with IPMN and some with no connection, likely representing rete ntion cyst, liver cyst and small hemangioma, left renal cyst, large perisplenic varices and spleno renal shunt and marked subcutaneous edema in bilateral flanks, small bilateral pleural effusions. T he patient was seen and evaluated by general surgery, the cause of pancreatitis and etiology is stil l unknown. The patient's triglycerides are within normal limits. There is no evidence of cholelith iasis. There was no evidence of spider bite or patient has not had any recent travel history. Rega rding her diabetes mellitus and hyperglycemia, the hypoglycemia is likely secondary to ____ Glipizid e. This medication was placed on hold. The patient was treated with glucose during the course of h ospitalization. Her blood glucose has been stable. The patient was placed on D5 while n.p.o. and w hen her lipase started to improve on 07/30/2016 the patient was placed on a full liquid diet and has been advanced as tolerated. Her lipase has been significantly improving. Today, her lipase is at 130, within normal limits. At this time, patient is medically stable to be discharged home. Her v itals are stable with temperature 98.2, pulse 91, respirations 18, blood pressure 143/65, O2 98% in room air. Patient denies having any discomfort. She will be discharged home with home health for p hysical therapy. Follow up with water pump installer as outpatient for further evaluation. LABORATORIES: Sodium 138, potassium 3.5, chloride 105, bicarbonate 27, BUN 7, creatinine 0.70, gluc ose 131, calcium 7.7, magnesium 1.7, total bilirubin 1.8, direct bilirubin 1.8, AST 56, ALT 77, zhang line phosphatase 59, total protein 4.8, albumin 2.3, lipase 230. CA 19-9 3.1. TSH 2.95. WBC 6.3, hemoglobin 11.7, hematocrit 34.4, platelets 135. CONDITION AT TIME OF DISCHARGE: Stable. Dictated By: JOSE FELDMAN MD PN/NTS Conf#: [id number] DID#: [id number] CC: [facility];*EndCC*
== END 2016-07-31 16:11 | disposition home health service (06) | DRG 438 ==
LOC: E/R 09:50 → TEL 12:06 → UNDOADMIN 16:22 → TEL 07-29 13:59
PROVIDERS: ADMIT Family Medicine; ATTEND Family Medicine
DX: K85.90 Acute pancreatitis without necrosis or infection, unspecified (principal); G93.41 Metabolic encephalopathy; E87.0 Hyperosmolality and hypernatremia; E16.2 Hypoglycemia, unspecified; E11.9 Type 2 diabetes mellitus without complications; I10 Essential (primary) hypertension; E78.5 Hyperlipidemia, unspecified; E88.09 Other disorders of plasma-protein metabolism, not elsewhere classified; I86.8 Varicose veins of other specified sites; M54.9 Dorsalgia, unspecified
CPT/HCPCS: 36415; 70450; 71010; 74176; 74177; 74181; 76705; 80053; 80061; 81003; 82150; 82550; 82962; 83036; 83690; 83735; 84443; 84484; 85025; 85610; 85730; 86301; 93005; 96360; 97162; J1815; J7042; Q9967

== ENCOUNTER 2017-07-06 23:21 | Inpatient (IN) | END 2017-07-15 16:50 | disposition home health service (06) | DRG 244 ==

== ENCOUNTER 2017-10-19 14:35 | Observation (INO) | END 2017-10-20 14:39 | disposition home or self-care (01) ==